=== PATIENT | male | born 1935 | race Caucasian/White ===

== ENCOUNTER 2017-04-19 19:40 | Inpatient (IN) | payer MEDICARE, OTHER, SELFPAY ==
[~2017-04-19 19:40] MED LIST: Atropine Sulfate 1 mg/10 ml Syringe ONE; Etomidate 20 MG/10 ML VIAL ONE
[2017-04-19] MEDS ORDERED: Acetaminophen 1,000 MG in Premix Bag 1 BAG IVPB SCH (20:15)
[2017-04-19 20:28] LABS: Bilirubin Small (Negative); Blood, Urine Trace (Negative); Clarity CLOUDY (Clear); Glucose, Urine (Dipstick) Negative (Negative); Leukocyte Negative (Negative); Nitrite Negative (Negative); Protein, Urine (Dipstick) 30 mg/dL (Neg-Trace); pH, Urine 6.5 (5.0-9.0)
[2017-04-19 20:30] LABS: Pathc Cast-AUWi Flag 2.16 (0-2.49); RBC/HPF 0-3 HPF (0-3); Squamous Epithelial 0-3 HPF (0-3); WBC/HPF 0-3 HPF (0-3)
[2017-04-19 20:39] LABS: Bacteria/HPF 1+ HPF (None Seen); Renal Epithelial None Seen HPF (0-3); Transitional Epithelial NONE SEEN HPF (0-3)
[2017-04-19 20:46] LABS: #Basophils 0.1 thou/uL (0.0-0.2); #Eosinphils 0.1 thou/uL (0.0-0.7); #Lymphocytes 2.2 thou/uL (1.20-3.40); #Monocytes 1.6 thou/uL (0.11-0.59); #Neutrophils 8.8 thou/uL (1.40-6.50); %Basophils 0.6 % (0.0-1.0); %Eosinophils 0.5 % (0.0-10.0); %Lymphocytes 17.2 % (21.0-51.0); %Monocytes 12.7 % (0.0-10.0); Hemoglobin 15.3 g/dL (14.0-18.0); Mean Corpuscular HGB CONC 35.2 g/dL (32.0-36.0); Mean Corpuscular Hemoglobin 34.4 pg (27.0-31.0); Mean Corpuscular Volume 97.7 fl (80.0-94.0); Mean Platelet Volume 7.4 fL (7.4-10.4); Platelet Count 144 thou/uL (130-400); RBC Distribution Width 11.4 % (11.5-14.5); Red Blood Cell (RBC) Count 4.45 mill/uL (4.70-6.10); White Blood Cell (WBC) Count 12.8 thou/uL (4.8-10.8)
[2017-04-19 20:53] LABS: INR-International Normal Ratio 1.2; PTT 30.8 SEC (22.9-36.1); Prothrombin Time 14.9 SEC (12.0-14.7)
--- NOTE | 2017-04-19 21:06 | CT ---
CT HEAD WITHOUT CONTRAST 04/19/17 COMPARISON: None. HISTORY: Altered mental status. TECHNIQUE: Serial axial CT imaging at 5 mm intervals from vertex through skull base without contrast. FINDINGS: There is mild mucosal thickening of the ethmoid air cells. There is atherosclerotic calcification of the cavernous carotid arteries. There is no displaced calvarial fracture. There is a linear area of hyperdensity in the left occipital region on axial image 5, of uncertain si gnificance without comparison imaging. A small area of extra-axial hemorrhage in this region cannot b e excluded. In addition, there is subtle increased linear density within the right occipital region o n axial image 13 which could signify small volume extra-axial blood. There is periventricular and deep white matter hypodensities suggesting small vessel disease. Prior l acunar infarction suspected in basal ganglia anteriorly on the left. No midline shift or mass effect. IMPRESSION: Questionable small volume extra-axial hemorrhage in the occipital regions, which could represent suba rachnoid or subdural blood. Followup imaging is thus advised. Results called to Dr. Roberson at 8:35 p.m., 04/19/17. Code CR POS: [facility]
[2017-04-19 21:08] LABS: ALT (SGPT) 21 U/L (8-55); AST (SGOT) 53 U/L (5-34); Albumin 3.4 g/dL (3.4-4.8); Alkaline Phosphatase 68 U/L (40-150); Anion Gap 26 mmol/L (10-20); BUN (Urea Nitrogen) 26 mg/dL (8.4-25.7); Bilirubin, Total 1.2 mg/dL (0.2-1.2); CK (CPK) 1411 U/L (30-200); Calc. Creatinine Clearance 0 mL/min (70-130); Calcium 8.1 mg/dL (7.8-10.44); Carbon Dioxide 10 mmol/L (23-31); Chloride 95 mmol/L (98-107); Estimated GFR-MDRD 20; Globulin 2.3 g/dL (2.4-3.5); Glucose 86 mg/dL (83-110); Potassium 3.7 mmol/L (3.5-5.1); Protein, Total 5.7 g/dL (5.8-8.1); Sodium 127 mmol/L (136-145)
[2017-04-19] MEDS ORDERED: Piperacillin/Tazobactam 4.5 GM in Sodium Chloride 0.9% 100 ML IVPB SCH (21:30)
[2017-04-19] MEDS ORDERED: Sodium Chloride 0.9% 1,000 ML IV SCH (23:00)
[2017-04-19] MEDS ORDERED: Dextrose 50% Abboject 50 ML SYRINGE SLOW IVP PRN (23:23)
[2017-04-19] MEDS ORDERED: Ondansetron HCl/PF 4 MG/2 ML Vial IVP PRN (23:23)
[2017-04-19] MEDS ORDERED: Dextrose 5% in Water 1,000 ML IV PRN (23:23)
[2017-04-20] MEDS: Sodium Chloride 0.9% 1,000 ML IV SCH ×6 (00:04→14:13)
--- NOTE | 2017-04-20 00:04 | HP ---
DATE OF ADMISSION: 04/19/2017 TIME OF SERVICE: 2130 hours. PRIMARY CARE PHYSICIAN: Unknown. CODE STATUS: Unknown. CHIEF COMPLAINT: Fall, found down. HISTORY OF PRESENT ILLNESS: Mr. Payne is an 83-year-old white male who was found down. His neighbors have been trying to reach him since yesterday. They had not heard from him, they went to his house and found him on the floor unresponsive. EMS was called. On their arrival, he was found to be very hot, confused and not speaking. He was last seen 2 days ago, was complaining of his eyes hurting, global weakness and vomiting. On EMS arrival, blood pressure reportedly low in the systolic 80s. He was given a liter of normal sa line en route, here his blood pressures have been in one teens and above. He did receive 3 more lite rs of normal saline in the emergency department. Blood pressure has been fairly normal now. Troponi n on initial labs was over 4. Temperature was 103.4 on arrival. The patient had been tachypneic and tachycardic. He is awake and looking around, but is very disoriented and confused. He is not able to give any further information. He did receive vancomycin and Zosyn prior to transfer. PAST MEDICAL HISTORY: Wheezing, hypertension, but otherwise unknown. PAST SURGICAL HISTORY: Unknown. HOME MEDICATIONS: Unknown. ALLERGIES: Unknown. FAMILY HISTORY: Not obtainable. SOCIAL HISTORY: Not obtainable. REVIEW OF SYSTEMS: Not obtainable due to mental status. PHYSICAL EXAMINATION: VITAL SIGNS: Temperature on arrival 103.4 down to 101.7 on a cooling blanket, pulse initially 149, n ow down to one teens. Blood pressure 124/86, respiratory rate 28, satting 96% on 2 liters. GENERAL: He is awake. He is looking around, but is disoriented. He is in no acute distress but loo ks uncomfortable. HEENT: Normocephalic and atraumatic. His pupils equal, round and reactive to light bilaterally. Mu cous membranes are moist. He has no visible lesions or thrush. NECK: Supple. He has no lymphadenopathy, no JVD, no thyromegaly. Normal carotid upstrokes. There are no bruits. CHEST: Lungs are clear. He has no wheezes, no rales or rhonchi. With good air movement, but shallo w, tachypneic respirations. ABDOMEN: Soft. He does groan when palpated. He has no involuntary guarding, no rigidity and no amrit ound tenderness. He has normoactive bowel sounds present in all 4 quadrants. EXTREMITIES: No cyanosis, no clubbing. He has got trace pedal edema. He has got 1+ and 2+ dorsalis pedis, posterior tibial pulses bilaterally. SKIN: Warm, moist, and well perfused otherwise. NEUROLOGIC: Not testable. MUSCULOSKELETAL: Normal to inspection. He has no inflamed joints. No palpable effusions. LABORATORY DATA: Sodium 127, potassium 3.7, chloride 95, bicarbonate 10, BUN 26 and creatinine of 2. 94, glucose of 86, and calcium of 8.1. Total protein was 5.7, albumin 3.4. AST slightly elevated at 53. Rest of liver function is complete ly within normal limits. CBC showed a white count of 12.8 with normal differential, hemoglobin is 15.3, hematocrit 43.4, plate let count is 144,000. Total CK was 1411, CK-MB of 31, troponin I of 4.45 and BNP is 133.6. Lactic acid was elevated at 3.[address] scan of the brain showed possible small volume subarachnoid hemorrhaging or subdural hematoma. Chest x-ray showed increased interstitial prominence but no opacities. ASSESSMENT AND PLAN: 1. Severe sepsis. I do not think the patient has septic shock. He responded to a single liter bolu s of fluids. His 30 mL per kilo would have been 2.4 liters. At this point, his blood pressure has n ormalized. He still remains tachypneic, tachycardic, likely secondary to his metabolic acidosis. Hi s heart rate has improved with fluids. His temperature has come down some. I will continue the Zosy n. He got a dose of vancomycin. With his creatinine of 2.94, he will likely hang around for another day or two. 2. Acute kidney injury versus chronic kidney disease. Creatinine is 2.94, BUN is only 26. We will give him fluids. We will check in the morning. 3. Rhabdomyolysis, mild. CK of 1411. 4. Non-ST elevation myocardial infarction. The patient does have lateral lead depression. Cardiolo gy was consulted. We will see him in the morning. In the meantime, we will trend his troponins out that was 4.45 in the emergency department. 5. Metabolic encephalopathy. 6. Lactic acidosis secondary to decreased tissue perfusion. 7. Possible subarachnoid hemorrhage versus subdural. Neurosurgery to be consulted. A repeat CT sca n has been ordered for the morning. It is very small volume and I do not think he needs any operativ e intervention at this point. Greater than 45 minutes were spent in critical care.
[2017-04-20 00:19] LABS: Lactic Acid 2.4 mmol/L (0.5-2.2)
[2017-04-20 00:34] LABS: CKMB 64.2 ng/mL (0-6.6); Troponin I 6.526 ng/mL (< 0.028)
[2017-04-20] MEDS ORDERED: Sodium Chloride 0.9% 1,000 ML IV SCH ×2 (01:00→17:30)
[2017-04-20] MEDS ORDERED: Piperacillin/Tazobactam 4.5 GM in Sodium Chloride 0.9% 100 ML IVPB SCH (04:00)
[2017-04-20 05:08] LABS: #Eosinphils 0.1 thou/uL (0.0-0.7); #Lymphocytes 1.6 thou/uL (1.20-3.40); #Monocytes 0.8 thou/uL (0.11-0.59); #Neutrophils 9.4 thou/uL (1.40-6.50); %Basophils 0.3 % (0.0-1.0); %Eosinophils 0.5 % (0.0-10.0); %Lymphocytes 13.1 % (21.0-51.0); %Monocytes 7.1 % (0.0-10.0); %Neutrophils 79.1 % (42.0-75.0); Hemoglobin 14.8 g/dL (14.0-18.0); Mean Corpuscular HGB CONC 34.7 g/dL (32.0-36.0); Mean Corpuscular Hemoglobin 34.1 pg (27.0-31.0); Mean Corpuscular Volume 98.3 fl (80.0-94.0); Mean Platelet Volume 7.5 fL (7.4-10.4); Platelet Count 153 thou/uL (130-400); RBC Distribution Width 11.3 % (11.5-14.5); Red Blood Cell (RBC) Count 4.34 mill/uL (4.70-6.10); White Blood Cell (WBC) Count 11.9 thou/uL (4.8-10.8)
[2017-04-20] MEDS ORDERED: Midazolam HCl 2 mg/2 ml Vial ONE (05:16)
[2017-04-20] MEDS ORDERED: Norepinephrine 8 MG/0.9% NS 250 ML ONE (05:22)
[2017-04-20 05:26] LABS: ALT (SGPT) 26 U/L (8-55); AST (SGOT) 96 U/L (5-34); Albumin 2.9 g/dL (3.4-4.8); Alkaline Phosphatase 58 U/L (40-150); Anion Gap 21 mmol/L (10-20); BUN (Urea Nitrogen) 26 mg/dL (8.4-25.7); Bilirubin, Total 1.1 mg/dL (0.2-1.2); CK (CPK) 2684 U/L (30-200); Calc. Creatinine Clearance 23 mL/min (70-130); Calcium 7.9 mg/dL (7.8-10.44); Carbon Dioxide 11 mmol/L (23-31); Chloride 100 mmol/L (98-107); Estimated GFR-MDRD 22; Globulin 2.4 g/dL (2.4-3.5); Glucose 101 mg/dL (83-110); Lipase 14 U/L (8-78); Magnesium 1.7 mg/dL (1.6-2.6); Potassium 3.8 mmol/L (3.5-5.1); Protein, Total 5.3 g/dL (5.8-8.1); Sodium 128 mmol/L (136-145)
[2017-04-20 05:32] LABS: Hemoglobin A1c 5.7 % (4.0-6.0)
[2017-04-20 05:57] LABS: Actual Bicarbonate (HCO3a) 12.5 mEq/L (22-26); CO2 Tension 34.7 mmHg (35.0-45.0); Hematocrit-ABG 42.3 % (42.0-52.0); Hemoglobin (Hb) 13.4 g/dL (14.0-18.0); O2 Tension (PaO2) 144.9 mmHg (80.0-100.0); pH, Arterial 7.17 (7.35-7.45)
[2017-04-20 05:58] LABS: ALV-art Gradient 519.725 (0-20); Calcium, Ionized 1.1 mmol/L (1.12-1.30); Puncture Site RRA
--- NOTE | 2017-04-20 06:25 | PDOC.EVN ---
Event Note - Event Note Event Note: code min called at around 0500. Pt hed just returned from CT brain, and abruptly dropped hs BP, then his HR dropped. Code min called. See Code sheet.. Pt intubated. see procedure note. 30 minutes were spent at the bedside
[2017-04-20] MEDS: Sodium Bicarbonate 150 MEQ in Sterile Water Injection 1,000 ML IV SCH ×2 (06:43→16:06)
--- NOTE | 2017-04-20 07:17 | RAD ---
SUPINE FRONTAL CHEST RADIOGRAPH 04/19/17 COMPARISON: None. HISTORY: Sepsis alert, altered mental status, fever. FINDINGS: There is atherosclerotic calcification in the aortic arch. Supine imaging limits assessment for pneum othorax and pleural fluid. No focal consolidation or alveolar edema. Patient is slightly rotated to t he right. IMPRESSION: No focal consolidation or alveolar edema. POS: [facility]
--- NOTE | 2017-04-20 07:21 | OP ---
DATE OF PROCEDURE: 04/20/2017 TIME OF SERVICE: 05:20. PROCEDURE PERFORMED: Endotracheal intubation, rapid sequence. INDICATION: Code blue. EMERGENCY STATUS: The patient is not protecting his airway. Informed consent was implied. Timeout was done. All equipment was verified. DESCRIPTION OF PROCEDURE: The patient was ordered to be given 20 mg of etomidate and 5 mg of Versed. He was bagged until these medicines were administered and effective. Once he was adequately relaxed, using a #4 Tobar blade, the oropharynx was opened and visualized. U sing a 7.5 endotracheal tube, the trachea was cannulated and the tube was inserted at 25 cm at the ps. This was done under direct visualization. Secondary confirmation with end-tidal capnography and bilateral chest sounds was obtained post-intuba tion. COMPLICATIONS: None, attempts 1. The patient was subsequently bagged until ventilator arrived and w as placed on ventilator settings. ESTIMATED BLOOD LOSS: 0.
[2017-04-20 07:41] LABS: CKMB 104.3 ng/mL (0-6.6); Troponin I 11.618 ng/mL (< 0.028)
--- NOTE | 2017-04-20 08:03 | CT ---
PRELIMINARY REPORT/[facility]/EMERGENCY AFTER HOURS PROCEDURE: EXAM: CT Head Without Intravenous Contrast EXAM DATE/TIME: 04/20/2017 5:04 AM CLINICAL HISTORY: 83 years old, male; Condition or disease; Other: Hemorrhage; Patient HX: F/u hemorrhage; Additional i nfo: Scan done helical due to pt constantly moving TECHNIQUE: Axial computed tomography images of the head/brain without intravenous contrast. COMPARISON: CT Brain WO Con 2017-04-19 20:17 FINDINGS: Brain: The ventricles are enlarged on the basis of mild diffuse cerebral volume loss. -hypodensity is seen in the periventricular cerebral white matter. This change is nonspecific but is most likely sec ondary to chronic ischemia within microvascular distributions. There are no other intra or extraaxial masses, lesions or collections. The mendoza white matter distinction is maintained throughout the brain . There is no radiographic evidence of intracranial hemorrhage. Small lacunar infarct left lentiform nuclei/centrum semiovale Summary: no radiographic evidence of acute intracranial pathology. Ventricles: See above. Bones/joints: Unremarkable. No acute fracture. Soft tissues: Unremarkable. Sinuses: Unremarkable as visualized. No acute sinusitis. Mastoid air cells: Unremarkable as visualized. No mastoid effusion. Other findings: . IMPRESSION: No acute findings. Thank you for allowing us to participate in the care of your patient. Dictated and Authenticated by: Javi Velez MD 04/20/2017 5:28 AM Central Time ([place] & [place]) FINAL REPORT NONCONTRAST HEAD CT: HISTORY: Followup examination. Intracranial hemorrhage. COMPARISON: 04/19/17. TECHNIQUE: A noncontrast head CT is performed from the skull base to the skull vertex. FINDINGS: This report is in agreement with the preliminary report by [facility]. Previously noted hyperdensities are less evident on the current examination and likely represent artifactual finding on the previous exam ination. No evidence of an intracranial hemorrhage. POS: [facility]
--- NOTE | 2017-04-20 08:07 | RAD ---
PORTABLE CHEST ONE VIEW: Date: 04-20-17 Time: 5:22 a.m. History: Respiratory failure. FINDINGS/IMPRESSION: Comparison is made with exam of 04-19-17. There has been interval placement of an endotracheal tube with tip at the level of the clavicular hea ds. The remainder of the exam is otherwise stable. POS: [facility]
[2017-04-20] MEDS ORDERED: Sedation Protocol FS ONE (08:26)
[2017-04-20] MEDS ORDERED: Propofol 1,000 MG/100 ML VIAL IV PRN (08:28)
[2017-04-20] MEDS ORDERED: Morphine 2 MG/ML SYRINGE SLOW IVP PRN (08:28)
[2017-04-20] MEDS ORDERED: fentaNYL Citrate/PF 2,000 MCG in Sodium Chloride 0.9% 60 ML IV SCH (08:28)
[2017-04-20] MEDS: Famotidine/PF 20 mg/2ml Vial SLOW IVP SCH (08:42)
[2017-04-20] MEDS ORDERED: Midazolam HCl 2 mg/2 ml Vial IVP SCH (08:45)
--- NOTE | 2017-04-20 09:07 | PRG ---
DATE OF CONSULTATION: 04/20/2017 A 45 minutes critical care time. CONSULTING PHYSICIAN: Dr. Fuller from the Hospitalist group. REASON FOR CONSULTATION: ICU management. HISTORY OF PRESENT ILLNESS: An 83-year-old male who was apparently found down by neighbors. He was brought to the hospital confused. He was hypotensive and was fluid resuscitated. His troponin was h igh and he also had a high CPK level. He gradually woke up. He was brought to the CCU. During the night, he became bradycardic and coded, had to be intubated and placed on mechanical ventilation, als o had to be placed on vasopressors. PAST MEDICAL HISTORY: Remarkable for hypertension. PAST SURGICAL HISTORY: Unknown. MEDICATIONS PRIOR TO ADMISSION: Unknown. ALLERGIES: Unknown. FAMILY MEDICAL HISTORY: Unremarkable. SOCIAL HISTORY: Not known. REVIEW OF SYSTEMS: Unobtainable due to the fact that he is intubated. PHYSICAL EXAMINATION: VITAL SIGNS: Temperature 98.4, pulse 136, blood pressure 100/52, O2 sat 98%, intake for 12 hours 700 , output 500, all voided through Toure. NEUROLOGICAL: The patient will withdrawal to pain. He will nod yes to questions. He will not open his eyes. HEENT: His eyes are deviated downward. Pupils are reactive. Oropharynx clear. NECK: No JVD. LUNGS: Clear to auscultation. CARDIOVASCULAR: S1, S2, tachycardic without murmur. ABDOMEN: Soft, protuberant. EXTREMITIES: No clubbing, cyanosis, or edema. LABORATORY DATA: Sodium 128, potassium 3.8, chloride 100, CO2 11, BUN 26, creatinine 2.7, glucose 10 1. Lactate level was 2.4. CPK 2684. Troponin 11.6, albumin 2.9. ABG, pH 7.17, pCO2 34, pO2 144 on SIMV rate 16, tidal volume 550, PEEP 5, pressure support 10, FIO2 100%. White blood cell count 11.9 , hematocrit 42.6, platelet count 153. X-RAY FINDINGS: His chest x-ray shows cardiomegaly, cephalization of flow, blunting of the left cost ophrenic angle, ET tube in good position. ASSESSMENT: 1. Status post cardiac arrest. 2. Acute respiratory failure requiring mechanical ventilation. 3. Possible sepsis. 4. Myocardial infarction with ST segment depression in the anterior leads. 5. Acute renal failure. 6. Metabolic acidosis. 7. Rhabdomyolysis. PLAN: 1. Bicarbonate drip has been started. 2. Wean Levophed as tolerated. 3. Adjust mechanical ventilation. 4. Empiric antibiotics. 5. Cardiology has been consulted. 6. Continue gastrointestinal prophylaxis with Pepcid. 7. Consider starting deep venous thrombosis prophylaxis if no contraindications and no heart cathete rization necessary.
[2017-04-20] MEDS: Piperacillin/Tazobactam 2.25 GM in Sodium Chloride 0.9% 100 ML IVPB SCH ×2 (09:20→17:10)
[2017-04-20 09:49] LABS: CKMB 120.1 ng/mL (0-6.6); Troponin I 14.205 ng/mL (< 0.028)
[2017-04-20 10:32] LABS: Actual Bicarbonate (HCO3a) 11.5 mEq/L (22-26); Base Excess (BEa) -11.6 mEq/L (0 (+/-) 2.5); CO2 Tension 20.6 mmHg (35.0-45.0); Hematocrit-ABG 41.9 % (42.0-52.0); Hemoglobin (Hb) 13.4 g/dL (14.0-18.0); pH, Arterial 7.36 (7.35-7.45)
[2017-04-20 10:33] LABS: Calcium, Ionized 1.1 mmol/L (1.12-1.30); Puncture Site LRA
[2017-04-20] MEDS: Norepinephrine 8 MG/250 ML BAG IVPB PRN ×2 (12:45→19:16)
[2017-04-20] MEDS ORDERED: Heparin 10,000 UNITS/ 10 ML VIAL SLOW IVP SCH (15:30)
--- NOTE | 2017-04-20 15:45 | EKG ---
Test Reason : Blood Pressure : / mmHG Vent. Rate : 140 BPM Atrial Rate : 140 BPM P-R Int : 000 ms QRS Dur : 090 ms QT Int : 372 ms P-R-T Axes : 000 073 088 degrees QTc Int : 567 ms Sinus tachycardia Possible Inferior infarct , age undetermined Abnormal ECG Confirmed by IRIS HATCH ([id number]) on 04/20/2017 3:44:59 PM Referred By: BENNY Confirmed By:IRIS HATCH
[2017-04-20] MEDS: Heparin 25,000 units/D5W 500 ML IV SCH (15:51)
[2017-04-20] MEDS ORDERED: Aspirin 325 MG TAB PO SCH (16:00)
--- NOTE | 2017-04-20 16:34 | PDOC.PN ---
- Subjective Encounter Start Date: 04/20/17 Encounter Start Time: 16:31 Subjective: pt remains intubated and sedated - Objective Resuscitation Status: Resuscitation Status FULL:Full Resuscitation MAR Reviewed: Yes Vital Signs & Weight: Vital Signs (12 hours) Temp Pulse Resp 04/20/17 15:05 133 H 04/20/17 13:18 134 H 04/20/17 12:00 99.6 F 04/20/17 10:35 136 H 04/20/17 10:00 31 H 04/20/17 08:00 28 H 04/20/17 07:35 98.4 F 04/20/17 07:20 135 H Weight Admit Weight 177 lb 11.081 oz Weight 177 lb 11.081 oz Most Recent Monitor Data Heart Rate from ECG 136 NIBP 98/46 NIBP BP-Mean 57 Respiration from ECG 32 SpO2 94 I&O: 04/19/17 04/20/17 04/21/17 06:59 06:59 06:59 Intake Total 700 30 Output Total 500 85 Balance 200 -55 Result Diagrams: 04/20/17 04:51 04/20/17 04:51 Additional Labs: Accuchecks 04/20/17 04/20/17 15:42 14:18 POC Glucose 82 77 Microbiology 04/19/17 19:54 Nasal swab Influenza Types A,B Direct EIA - Final 04/19/17 20:35 Venous blood - Left Arm Blood Culture - Preliminary Specimen has been received and culture in progress. No Growth to date. 04/19/17 20:30 Venous blood - Right Arm Blood Culture - Preliminary Specimen has been received and culture in progress. No Growth to date. Laboratory Tests 04/19/17 04/19/17 04/20/17 20:31 23:43 05:17 Troponin I 4.450 H* 6.526 H* 11.618 H* 04/20/17 08:37 Troponin I 14.205 H* Phys Exam - Physical Examination Constitutional: NAD ETT HEENT: PERRLA, moist MMs, sclera anicteric Neck: no JVD Respiratory: no wheezing, no rales, no rhonchi, clear to auscultation bilateral Cardiovascular: RRR, no significant murmur Gastrointestinal: soft, no distention, positive bowel sounds Musculoskeletal: no edema, pulses present sedated sedated Skin: no rash Dx/Plan (1) Acute respiratory failure Code(s): J96.00 - ACUTE RESPIRATORY FAILURE, UNSP W HYPOXIA OR HYPERCAPNIA Status: Acute Qualifiers: Respiratory failure complication: hypoxia Qualified Code(s): J96.01 - Acute respiratory failure with hypoxia (2) Cardiac arrest Code(s): I46.9 - CARDIAC ARREST, CAUSE UNSPECIFIED Status: Acute Comment: Coded 04/19/17 (3) ACS (acute coronary syndrome) Code(s): I24.9 - ACUTE ISCHEMIC HEART DISEASE, UNSPECIFIED Status: Acute (4) Rhabdomyolysis Code(s): M62.82 - RHABDOMYOLYSIS Status: Acute (5) Metabolic encephalopathy Code(s): G93.41 - METABOLIC ENCEPHALOPATHY Status: Acute (6) MICH (acute kidney injury) Code(s): N17.9 - ACUTE KIDNEY FAILURE, UNSPECIFIED Status: Acute (7) Metabolic acidosis Code(s): E87.2 - ACIDOSIS Status: Acute (8) Shock Code(s): R57.9 - SHOCK, UNSPECIFIED Status: Acute Comment: Cardiogenic Vs Septic Vs both (9) Sepsis Code(s): A41.9 - SEPSIS, UNSPECIFIED ORGANISM Status: Suspected - Plan cont current plan of care, DVT proph w/SCDs empiric ABx.Nicardipine drip.Cardiology,PCCM following -: Vent support. -: D/W Cardiology.start ASA,Heparin gtt per protocol. -: monitor CPK.IVF.supportive care for now.daily labs -: ECHo w NL EF per Dr. Richter.will follow * . Review of Systems - Review of Systems Other: unobtainable due to sedation & ETT - Medications/Allergies Allergies/Adverse Reactions: Allergies Allergy/AdvReac Type Severity Reaction Status Date / Time No Known Drug Allergies Allergy Unverified 04/19/17 20:09 Medications: Current Medications Aspirin (Aspirin) 325 mg PO 1600 DON Stop: 04/20/17 18:00 Aspirin (Aspirin) 325 mg PO DAILY [facility] Dextrose/Water (Dextrose 50%) 25 gm SLOW IVP PRN PRN PRN Reason: Hypoglycemia Famotidine (Pepcid) 20 mg SLOW IVP 0900 DON Last Admin: 04/20/17 08:42 Dose: 20 mg Glucagon (Glucagon) 1 mg IM PRN PRN PRN Reason: Hypoglycemia Heparin Sodium (Porcine) (Heparin 1,000 Units/Ml (10 Ml)) 4,000 units SLOW IVP WILLCALL [facility] Last Admin: 04/20/17 15:50 Dose: 4,000 unit Dextrose/Water (D5w) 1,000 mls @ 0 mls/hr IV .Q0M PRN; As Directed PRN Reason: Hypoglycemia Sodium Bicarbonate 150 meq/ (Sterile Water) 1,150 mls @ 125 mls/hr IV .Q9H12M [facility] Last Admin: 04/20/17 16:06 Dose: 1,150 mls Fentanyl Citrate 2,000 mcg/ (Sodium Chloride) 100 mls @ 0 mls/hr IV INF DON; Per Protocol PRN Reason: Protocol Stop: 05/20/17 08:28 Fentanyl Citrate (Fentanyl Bolus) 250 mls @ 0 mls/hr IVPB PRN PRN; As Directed PRN Reason: Breakthrough pain Stop: 05/20/17 08:28 Piperacillin Sod/Tazobactam (Sod 2.25 gm/ Sodium Chloride) 100 mls @ 200 mls/ hr IVPB 0100,0900,1700 [facility] Last Admin: 04/20/17 09:20 Dose: 100 mls Norepinephrine Bitartrate (Levophed) 250 mls @ 0 mls/hr IVPB INF PRN; Protocol ; Titrate PRN Reason: Blood Pressure Last Admin: 04/20/17 12:45 Dose: 250 mls Heparin Sodium/Dextrose (Heparin 25,000 Units/D5w 500 Ml) 500 mls @ 0 mls/hr IV INF DON; As Directed PRN Reason: Protocol Last Admin: 04/20/17 15:51 Dose: 500 mls Insulin Human Lispro (Humalog) 0 units SC .MILD SLIDING SCALE PRN PRN Reason: Mild Correctional Scale Lorazepam (Ativan) 2 mg SLOW IVP Q2H PRN PRN Reason: Anxiety to achieve Mera 2-3 Stop: 05/20/17 08:28 Morphine Sulfate (Morphine) 2 mg SLOW IVP Q2H PRN PRN Reason: Breakthrough pain Stop: 05/20/17 08:28 Ondansetron HCl (Zofran) 4 mg IVP Q6H PRN PRN Reason: Nausea/Vomiting Propofol (Diprivan) 1,000 mg IV INF PRN; Protocol PRN Reason: TO ACHIEVE MERA SCORE 2-3 Stop: 05/20/17 08:28 Sodium Chloride (Flush - Normal Saline) 10 ml IVF Q12HR DON Last Admin: 04/20/17 08:42 Dose: 10 ml Sodium Chloride (Flush - Normal Saline) 10 ml IVF PRN PRN PRN Reason: Saline Flush
[2017-04-20 16:37] LABS: CKMB 104.2 ng/mL (0-6.6)
[2017-04-20] MEDS ORDERED: Phenylephrine 10 MG/NS 250 ML 250 ML IVPB SCH (17:30)
[2017-04-20] MEDS ORDERED: Acetaminophen 1,000 MG in Premix Bag 1 BAG IVPB PRN (19:45)
--- NOTE | 2017-04-20 20:25 | CON ---
Total critical care time 80 minutes. HISTORY OF PRESENT ILLNESS: Mr. Payne is an unfortunate 83-year-old gentleman where most of the histo ry is obtained from the chart. Apparently Mr. Payne presented to the emergency room after being found down. He was unresponsive while at home. EMS was summoned. He was confused with a temperature 103 .4. He was then transferred to the emergency room. He was found to have ST segment depression, cons istent with subendocardial ischemia versus acute posterior infarct. The patient also with elevated c reatinine of 2.9 in addition to subarachnoid bleed. His CK-MB and CK were both elevated as well as a troponin of 4. It was decided to treat conservatively due to a likely subarachnoid bleed. I did discuss this with Dr. Jeffery Roberson. This morning, CT scan of the head was repeated to assess the intracranial bleed. This was not found to be significant and not found to be a bleed and more consistent with an artifact on the first CT sc an. He subsequently coded shortly thereafter. He is now intubated and sedated. PAST MEDICAL HISTORY: Unknown other than hypertension. Medications, allergies, family history, and social history all unknown. He is currently intubated. PHYSICAL EXAMINATION: VITAL SIGNS: Blood pressure 90/38, pulse 130, and respirations 20. GENERAL: Patient is a pleasant male, who is in no acute distress. The patient appears his stated ag e. The patient is currently intubated and sedated. NEUROLOGIC: The patient is alert and oriented times 3 with no focal neurologic deficits. HEENT: Sclerae without icterus. Mouth has moist mucous membranes with normal pallor. NECK: No JVD. Carotid upstroke brisk. No bruits bilaterally. LUNGS: Clear to auscultation with unlabored respirations. BACK: No scoliosis or kyphosis. CARDIAC: Regular rate and rhythm with normal S1 and S2. No S3 or S4 noted. No significant rubs, murmurs, thrills, or gallops noted throughout the precordium. PMI is not displa zully. There is no parasternal heave. ABDOMEN: Soft, nontender, nondistended. No peritoneal signs present. No hepatosplenomegaly. No abnormal striae. EXTREMITIES: 2+ femoral and 2+ dorsalis pedis pulses. No cyanosis, clubbing, or edema. SKIN: No gross abnormalities. PERTINENT LABORATORY DATA: Hemoglobin 14.8. CK-MB trending downward with a CK-MB of 104, 120, 104 and a Troponin of 11, 14, and 19. Creatinine kinase also elevated at 1400, 2684, 2957. EKG as described above. Follow up EKG shows normal sinus rhythm with much improvement in ST segment changes. IMPRESSION: 1. Respiratory failure. 2. Unresponsive. 3. Hypotensive likely septic shock. 4. Elevated troponin. 5. Acute kidney injury. RECOMMENDATIONS: Certainly this is a very difficult case. I have seen Mr. Payne in multiple occasion s and also daughter today. He initially was decided not to proceed with urgent angiography due to el evated creatinine in addition to a subarachnoid bleed. After confirmation via the CT scan, there was no subarachnoid hemorrhage with improvement of his EKG in addition to a CK MB to CK ratio of 2 and a creatinine of 2.7. It was decided to treat medically. Heparin and aspirin were given. Bedside echo did suggest LVEF 60% to 65%, although it was of poor quality. Initial insult difficult to assess. It is unknown whether this is truly a primary cardiac event, which is doubtful given his CK-MB to CK ratio versus septic shock. We will continue to follow closely with you.
[2017-04-20] MEDS: Vasopressin 40 UNIT, Admixture Fee 1 EACH in Sodium Chloride 0.9% 100 ML IV SCH (20:55)
[2017-04-20] MEDS: Hydrocortisone Sod Succ/PF 100 mg/2 ml Vial IVP SCH (23:00)
[2017-04-21 00:06] LABS: PTT Greater than 250.0 SEC (22.9-36.1)
[2017-04-21] MEDS: Sodium Bicarbonate 150 MEQ in Sterile Water Injection 1,000 ML IV SCH ×3 (01:38→20:37)
[2017-04-21] MEDS: Piperacillin/Tazobactam 2.25 GM in Sodium Chloride 0.9% 100 ML IVPB SCH ×3 (01:40→18:01)
[2017-04-21] MEDS: Phenylephrine HCL 20 MG in Sodium Chloride 0.9% 250 ML 250 ML IV SCH ×5 (04:07→18:31)
[2017-04-21 05:29] LABS: ALT (SGPT) 35 U/L (8-55); AST (SGOT) 160 U/L (5-34); Albumin 2.2 g/dL (3.4-4.8); Alkaline Phosphatase 53 U/L (40-150); Anion Gap 22 mmol/L (10-20); BUN (Urea Nitrogen) 28 mg/dL (8.4-25.7); Calc. Creatinine Clearance 17 mL/min (70-130); Calcium 6.8 mg/dL (7.8-10.44); Carbon Dioxide 13 mmol/L (23-31); Chloride 99 mmol/L (98-107); Estimated GFR-MDRD 16; Glucose 114 mg/dL (83-110); Lipase 14 U/L (8-78); Potassium 5.1 mmol/L (3.5-5.1); Protein, Total 4.2 g/dL (5.8-8.1); Sodium 129 mmol/L (136-145)
[2017-04-21 05:54] LABS: Band 18 % (5-11); Hemoglobin 12.2 g/dL (14.0-18.0); Lymphocytes 6 % (21-51); MDiff Complete? YES; Macrocytosis SLIGHT = 6-15 cells (100X) (0-5/hpf); Mean Corpuscular HGB CONC 34.9 g/dL (32.0-36.0); Mean Corpuscular Hemoglobin 33.7 pg (27.0-31.0); Mean Corpuscular Volume 96.7 fl (80.0-94.0); Mean Platelet Volume 8.1 fL (7.4-10.4); Metamyelocyte 8 % (0-0); Monocytes 6 % (0-10); Neutrophil 61 % (42-75); PLT Morphology Comment Appears Decreased; Platelet Count 128 thou/uL (130-400); RBC Distribution Width 11.6 % (11.5-14.5); Reactive Lymphocytes 1 % (0-10); Red Blood Cell (RBC) Count 3.63 mill/uL (4.70-6.10); White Blood Cell (WBC) Count 15.9 thou/uL (4.8-10.8)
[2017-04-21] MEDS: Hydrocortisone Sod Succ/PF 100 mg/2 ml Vial IVP SCH ×3 (06:36→18:01)
[2017-04-21 07:59] LABS: CO2 Tension 20.7 mmHg (35.0-45.0); Hematocrit-ABG 37.9 % (42.0-52.0); Hemoglobin (Hb) 12.2 g/dL (14.0-18.0); O2 Tension (PaO2) 80.4 mmHg (80.0-100.0); pH, Arterial 7.38 (7.35-7.45)
[2017-04-21 08:00] LABS: ALV-art Gradient 178.925 (0-20); Calcium, Ionized 0.9 mmol/L (1.12-1.30); Puncture Site RRA
--- NOTE | 2017-04-21 08:07 | PDOC.PULCC ---
CCU Progress Note: Subj/Obj - Subjective Date: 04/21/17 Time: 08:05 Narrative: intubated. sedated on fentanyl. Poorly responsive - Objective Allergies/Adverse Reactions: Allergies Allergy/AdvReac Type Severity Reaction Status Date / Time No Known Drug Allergies Allergy Unverified 04/19/17 20:09 Medications: Current Medications Aspirin (Aspirin) 325 mg PO DAILY [facility] Dextrose/Water (Dextrose 50%) 25 gm SLOW IVP PRN PRN PRN Reason: Hypoglycemia Famotidine (Pepcid) 20 mg SLOW IVP 0900 [facility] Last Admin: 04/20/17 08:42 Dose: 20 mg Glucagon (Glucagon) 1 mg IM PRN PRN PRN Reason: Hypoglycemia Heparin Sodium (Porcine) (Heparin 1,000 Units/Ml (10 Ml)) 4,000 units SLOW IVP [facility] Last Admin: 04/20/17 15:50 Dose: 4,000 unit Hydrocortisone Sodium Succinate (Solu-Cortef) 100 mg IVP Q6HR [facility] Last Admin: 04/21/17 06:36 Dose: 100 mg Dextrose/Water (D5w) 1,000 mls @ 0 mls/hr IV .Q0M PRN; As Directed PRN Reason: Hypoglycemia Sodium Bicarbonate 150 meq/ (Sterile Water) 1,150 mls @ 125 mls/hr IV .Q9H12M [facility] Last Admin: 04/21/17 01:38 Dose: 1,150 mls Fentanyl Citrate 2,000 mcg/ (Sodium Chloride) 100 mls @ 0 mls/hr IV INF [facility]; Per Protocol PRN Reason: Protocol Stop: 05/20/17 08:28 Last Admin: 04/21/17 00:37 Dose: 100 mls Fentanyl Citrate (Fentanyl Bolus) 250 mls @ 0 mls/hr IVPB PRN PRN; As Directed PRN Reason: Breakthrough pain Stop: 05/20/17 08:28 Piperacillin Sod/Tazobactam (Sod 2.25 gm/ Sodium Chloride) 100 mls @ 200 mls/ hr IVPB 0100,0900,1700 [facility] Last Admin: 04/21/17 01:40 Dose: 100 mls Norepinephrine Bitartrate (Levophed) 250 mls @ 0 mls/hr IVPB INF PRN; Protocol ; Titrate PRN Reason: Blood Pressure Last Admin: 04/20/17 19:16 Dose: 250 mls Heparin Sodium/Dextrose (Heparin 25,000 Units/D5w 500 Ml) 500 mls @ 0 mls/hr IV INF [facility]; As Directed PRN Reason: Protocol Last Admin: 04/20/17 15:51 Dose: 500 mls Acetaminophen 1,000 mg/ Device 100 mls @ 400 mls/hr IVPB Q6H PRN PRN Reason: Fever/Mild Pain Stop: 04/21/17 19:46 Vasopressin 40 unit/Miscellaneous Medication 1 each/ Sodium Chloride 102 mls @ 0 mls/hr IV INF [facility]; As Directed PRN Reason: Protocol Last Admin: 04/20/17 20:55 Dose: 102 mls Phenylephrine HCl 20 mg/ (Sodium Chloride) 252 mls @ 0 mls/hr IV INF [facility]; Titrate PRN Reason: Protocol Last Admin: 04/21/17 07:22 Dose: 252 mls Insulin Human Lispro (Humalog) 0 units SC .MILD SLIDING SCALE PRN PRN Reason: Mild Correctional Scale Lorazepam (Ativan) 2 mg SLOW IVP Q2H PRN PRN Reason: Anxiety to achieve Mera 2-3 Stop: 05/20/17 08:28 Morphine Sulfate (Morphine) 2 mg SLOW IVP Q2H PRN PRN Reason: Breakthrough pain Stop: 05/20/17 08:28 Ondansetron HCl (Zofran) 4 mg IVP Q6H PRN PRN Reason: Nausea/Vomiting Propofol (Diprivan) 1,000 mg IV INF PRN; Protocol PRN Reason: TO ACHIEVE MERA SCORE 2-3 Stop: 05/20/17 08:28 Sodium Chloride (Flush - Normal Saline) 10 ml IVF Q12HR [facility] Last Admin: 04/20/17 22:56 Dose: 10 ml Sodium Chloride (Flush - Normal Saline) 10 ml IVF PRN PRN PRN Reason: Saline Flush MAR Reviewed: Yes Vital Signs and I&O: Vital Signs Temp 98.4 F 04/21/17 04:00 Pulse 128 H 04/20/17 20:00 Resp 24 H 04/21/17 06:00 BP 94/45 L 04/20/17 04:30 Pulse Ox 98 04/20/17 20:00 Intake & Output 02/21/18 02/22/18 02/22/18 18:59 06:59 18:59 Intake Total 4025 3956.1 Output Total 740 565 Balance 3285 3391.1 Weight 177 lb 11.081 oz Intake: Intake, IV Amount 3995 3956.1 Heparin 25,000 units/D5W 39 148 500 ml @ As Directed IV INF [facility] Rx#:[id number] Norepinephrine 8 MG/0.9% 486 276 NS 250 ml @ Titrate IVPB INF PRN Rx#:[id number] Phenylephrine HCL 10 mg 568 In Sodium Chloride 0.9% 250 ML 250 ml @ Titrate IV INF [facility] Rx#:[id number] Phenylephrine HCL 20 mg 192 In Sodium Chloride 0.9% 250 ML 250 ml @ Titrate IV INF [facility] Rx#:[id number] Piperacillin/Tazobactam 2 100 .25 gm In Sodium Chloride 0.9% 100 ml @ 200 mls/hr IVPB 0100,0900,1700 [facility] Rx#:[id number] Propofol 1000 mg (See 44 48.8 Protocol) IV INF PRN Rx#: [id number] Sodium Bicarbonate 150 1426 1567 meq In Sterile Water Injection 1,000 ml @ 125 mls/hr IV .Q9H12M [facility] Rx# :[id number] Sodium Chloride 0.9% 1, 1000 000 ml @ 125 mls/hr IV . Q8H [facility] Rx#:[id number] Sodium Chloride 0.9% 1, 1000 000 ml @ 250 mls/hr IV . Q4H [facility] Rx#:[id number] Sodium Chloride 0.9% 1, 1000 000 ml @ 500 mls/hr IV . Q2H [facility] Rx#:[id number] Vasopressin 40 unit 56.3 Admixture Fee 1 each In Sodium Chloride 0.9% 100 ml @ As Directed IV INF [facility] Rx#:[id number] Oral 0 Tube Irrigant 30 Output: Gastric Drainage 600 500 Output, Toure 140 65 Other: Voiding Method Indwelling Catheter Indwelling Catheter # Bowel Movements 0 0 Vent Setting: SIMV 24/500/40% Spontaneous Breathing Test: not done Lines (incl Aterial, CVC, PICC+Insertion date): Left femoral central line CCU Progress Note: Exam - Physical Exam Constitutional: NAD Deviation from normal: conj edema, icteric Neck: no nodes, no JVD Cardiovascular: RRR Deviation from normal: requiring paramjit and vasopressin Respiratory: clear to auscultation bilaterally Gastrointestinal: soft, no distention Deviation from normal: cannot get him to withdraw Lymphatic: no nodes Deviation from normal: sedated Skin: no rash CCU Progress Note: Data - Labs Result Diagrams: 04/21/17 04:45 04/21/17 04:45 Lab results: Laboratory Results 04/19/17 04/19/17 04/20/17 23:43 23:43 04:51 WBC RBC Hgb Hct MCV MCH MCHC RDW Plt Count MPV Neutrophils % Neutrophils % (Manual) Band Neuts % (Manual) Lymphocytes % Lymphocytes % (Manual) Reactive Lymphs % Monocytes % Monocytes % (Manual) Eosinophils % Basophils % Metamyelocytes % (Man) Neutrophils # Lymphocytes # Monocytes # Eosinophils # Basophils # Plt Morphology Comment Macrocytosis APTT Specimen Type Puncture Site Bicarbonate Actual ABG pH ABG pCO2 ABG pO2 ABG O2 Sat Calc/Cheli ABG O2 Content ABG Base Excess ABG Hematocrit ABG Hemoglobin ABG Oxyhemoglobin ABG Carboxyhemoglobin ABG Methemoglobin ABG Deoxyhemoglobin Edy Test A-a O2 Gradient Ionized Calcium Mode of Support Mechanical Rate Inspired O2 Inspiratory Time Tidal Volume Pressure Support PEEP or CPAP Sodium 128 L Potassium 3.8 Chloride 100 Carbon Dioxide 11 L Anion Gap 21 H BUN 26 H Creatinine 2.71 H Estimated GFR (MDRD) 22 Glucose 101 POC Glucose Hemoglobin A1c Lactic Acid 2.4 H Calcium 7.9 Magnesium 1.7 Total Bilirubin 1.1 AST 96 H ALT 26 Alkaline Phosphatase 58 Creatine Kinase 2684 H CK-MB (CK-2) 64.2 H* Troponin I 6.526 H* Serum Total Protein 5.3 L Albumin 2.9 L Globulin 2.4 Albumin/Globulin Ratio 1.2 Lipase 14 04/20/17 04/20/17 04/20/17 04:51 04:51 05:17 WBC 11.9 H RBC 4.34 L Hgb 14.8 Hct 42.6 MCV 98.3 H MCH 34.1 H MCHC 34.7 RDW 11.3 L Plt Count 153 MPV 7.5 Neutrophils % 79.1 H Neutrophils % (Manual) Band Neuts % (Manual) Lymphocytes % 13.1 L Lymphocytes % (Manual) Reactive Lymphs % Monocytes % 7.1 Monocytes % (Manual) Eosinophils % 0.5 Basophils % 0.3 Metamyelocytes % (Man) Neutrophils # 9.4 H Lymphocytes # 1.6 Monocytes # 0.8 H Eosinophils # 0.1 Basophils # 0.0 Plt Morphology Comment Macrocytosis APTT Specimen Type Puncture Site Bicarbonate Actual ABG pH ABG pCO2 ABG pO2 ABG O2 Sat Calc/Cheli ABG O2 Content ABG Base Excess ABG Hematocrit ABG Hemoglobin ABG Oxyhemoglobin ABG Carboxyhemoglobin ABG Methemoglobin ABG Deoxyhemoglobin Edy Test A-a O2 Gradient Ionized Calcium Mode of Support Mechanical Rate Inspired O2 Inspiratory Time Tidal Volume Pressure Support PEEP or CPAP Sodium Potassium Chloride Carbon Dioxide Anion Gap BUN Creatinine Estimated GFR (MDRD) Glucose POC Glucose Hemoglobin A1c 5.7 Lactic Acid Calcium Magnesium Total Bilirubin AST ALT Alkaline Phosphatase Creatine Kinase CK-MB (CK-2) 104.3 H* Troponin I 11.618 H* Serum Total Protein Albumin Globulin Albumin/Globulin Ratio Lipase 04/20/17 04/20/17 04/20/17 05:36 08:37 08:37 WBC RBC Hgb Hct MCV MCH MCHC RDW Plt Count MPV Neutrophils % Neutrophils % (Manual) Band Neuts % (Manual) Lymphocytes % Lymphocytes % (Manual) Reactive Lymphs % Monocytes % Monocytes % (Manual) Eosinophils % Basophils % Metamyelocytes % (Man) Neutrophils # Lymphocytes # Monocytes # Eosinophils # Basophils # Plt Morphology Comment Macrocytosis APTT Specimen Type ARTERIAL Puncture Site RRA Bicarbonate Actual 12.5 L ABG pH 7.17 L* ABG pCO2 34.7 L ABG pO2 144.9 H ABG O2 Sat Calc/Cheli 98.6 ABG O2 Content 18.4 ABG Base Excess -15.0 L ABG Hematocrit 42.3 ABG Hemoglobin 13.4 L ABG Oxyhemoglobin 96.9 ABG Carboxyhemoglobin 1.1 ABG Methemoglobin 0.6 ABG Deoxyhemoglobin 1.4 Edy Test POSITIVE A-a O2 Gradient 519.725 H Ionized Calcium 1.1 L Mode of Support SIMV Mechanical Rate 16 Inspired O2 100 Inspiratory Time Tidal Volume 550 Pressure Support 10 PEEP or CPAP 5.0 Sodium 128 L Potassium 3.6 L Chloride 98 Carbon Dioxide Anion Gap BUN Creatinine Estimated GFR (MDRD) Glucose POC Glucose Hemoglobin A1c Lactic Acid Calcium Magnesium Total Bilirubin AST ALT Alkaline Phosphatase Creatine Kinase 2957 H CK-MB (CK-2) 120.1 H* Troponin I 14.205 H* Serum Total Protein Albumin Globulin Albumin/Globulin Ratio Lipase 04/20/17 04/20/17 04/20/17 10:20 14:18 15:37 WBC RBC Hgb Hct MCV MCH MCHC RDW Plt Count MPV Neutrophils % Neutrophils % (Manual) Band Neuts % (Manual) Lymphocytes % Lymphocytes % (Manual) Reactive Lymphs % Monocytes % Monocytes % (Manual) Eosinophils % Basophils % Metamyelocytes % (Man) Neutrophils # Lymphocytes # Monocytes # Eosinophils # Basophils # Plt Morphology Comment Macrocytosis APTT Specimen Type ARTERIAL Puncture Site LRA Bicarbonate Actual 11.5 L ABG pH 7.36 ABG pCO2 20.6 L* ABG pO2 67.0 L ABG O2 Sat Calc/Cheli 95.0 ABG O2 Content 17.6 ABG Base Excess -11.6 L ABG Hematocrit 41.9 L ABG Hemoglobin 13.4 L ABG Oxyhemoglobin 0.9 L ABG Carboxyhemoglobin 0.9 ABG Methemoglobin 0.6 ABG Deoxyhemoglobin Edy Test A-a O2 Gradient 192.450 H Ionized Calcium 1.1 L Mode of Support SIMV/VC+ Mechanical Rate 24 Inspired O2 40 Inspiratory Time 1.00 Tidal Volume 450 Pressure Support 10 PEEP or CPAP 5.0 Sodium 129 L Potassium 3.4 L Chloride 97 L Carbon Dioxide Anion Gap BUN Creatinine Estimated GFR (MDRD) Glucose POC Glucose 77 Hemoglobin A1c Lactic Acid Calcium Magnesium Total Bilirubin AST ALT Alkaline Phosphatase Creatine Kinase CK-MB (CK-2) 104.2 H* Troponin I 19.640 H* Serum Total Protein Albumin Globulin Albumin/Globulin Ratio Lipase 04/20/17 04/20/17 04/20/17 15:42 22:36 23:30 WBC RBC Hgb Hct MCV MCH MCHC RDW Plt Count MPV Neutrophils % Neutrophils % (Manual) Band Neuts % (Manual) Lymphocytes % Lymphocytes % (Manual) Reactive Lymphs % Monocytes % Monocytes % (Manual) Eosinophils % Basophils % Metamyelocytes % (Man) Neutrophils # Lymphocytes # Monocytes # Eosinophils # Basophils # Plt Morphology Comment Macrocytosis APTT Greater than 250.0 H* Specimen Type Puncture Site Bicarbonate Actual ABG pH ABG pCO2 ABG pO2 ABG O2 Sat Calc/Cheli ABG O2 Content ABG Base Excess ABG Hematocrit ABG Hemoglobin ABG Oxyhemoglobin ABG Carboxyhemoglobin ABG Methemoglobin ABG Deoxyhemoglobin Edy Test A-a O2 Gradient Ionized Calcium Mode of Support Mechanical Rate Inspired O2 Inspiratory Time Tidal Volume Pressure Support PEEP or CPAP Sodium Potassium Chloride Carbon Dioxide Anion Gap BUN Creatinine Estimated GFR (MDRD) Glucose POC Glucose 82 91 Hemoglobin A1c Lactic Acid Calcium Magnesium Total Bilirubin AST ALT Alkaline Phosphatase Creatine Kinase CK-MB (CK-2) Troponin I Serum Total Protein Albumin Globulin Albumin/Globulin Ratio Lipase 04/21/17 04/21/17 04/21/17 02:35 04:45 04:45 WBC 15.9 H RBC 3.63 L Hgb 12.2 L Hct 35.0 L MCV 96.7 H MCH 33.7 H MCHC 34.9 RDW 11.6 Plt Count 128 L MPV 8.1 Neutrophils % Neutrophils % (Manual) 61 Band Neuts % (Manual) 18 H Lymphocytes % Lymphocytes % (Manual) 6 L Reactive Lymphs % 1 Monocytes % Monocytes % (Manual) 6 Eosinophils % Basophils % Metamyelocytes % (Man) 8 H Neutrophils # Lymphocytes # Monocytes # Eosinophils # Basophils # Plt Morphology Comment Appears Decreased L Macrocytosis SLIGHT = 6-15 cells APTT 91.8 H Specimen Type Puncture Site Bicarbonate Actual ABG pH ABG pCO2 ABG pO2 ABG O2 Sat Calc/Cheli ABG O2 Content ABG Base Excess ABG Hematocrit ABG Hemoglobin ABG Oxyhemoglobin ABG Carboxyhemoglobin ABG Methemoglobin ABG Deoxyhemoglobin Edy Test A-a O2 Gradient Ionized Calcium Mode of Support Mechanical Rate Inspired O2 Inspiratory Time Tidal Volume Pressure Support PEEP or CPAP Sodium 129 L Potassium 5.1 Chloride 99 Carbon Dioxide 13 L Anion Gap 22 H BUN 28 H Creatinine 3.65 H Estimated GFR (MDRD) 16 Glucose 114 H POC Glucose Hemoglobin A1c Lactic Acid Calcium 6.8 L Magnesium Total Bilirubin 1.0 AST 160 H ALT 35 Alkaline Phosphatase 53 Creatine Kinase CK-MB (CK-2) Troponin I Serum Total Protein 4.2 L Albumin 2.2 L Globulin 2.0 L Albumin/Globulin Ratio 1.1 L Lipase 14 04/21/17 04/21/17 05:12 07:50 WBC RBC Hgb Hct MCV MCH MCHC RDW Plt Count MPV Neutrophils % Neutrophils % (Manual) Band Neuts % (Manual) Lymphocytes % Lymphocytes % (Manual) Reactive Lymphs % Monocytes % Monocytes % (Manual) Eosinophils % Basophils % Metamyelocytes % (Man) Neutrophils # Lymphocytes # Monocytes # Eosinophils # Basophils # Plt Morphology Comment Macrocytosis APTT Specimen Type ARTERIAL Puncture Site RRA Bicarbonate Actual 12.0 L ABG pH 7.38 ABG pCO2 20.7 L* ABG pO2 80.4 ABG O2 Sat Calc/Cheli 96.3 ABG O2 Content 16.3 L ABG Base Excess -11.0 L ABG Hematocrit 37.9 L ABG Hemoglobin 12.2 L ABG Oxyhemoglobin 95.0 ABG Carboxyhemoglobin 0.8 ABG Methemoglobin 0.5 ABG Deoxyhemoglobin Edy Test A-a O2 Gradient 178.925 H Ionized Calcium 0.9 L Mode of Support SIMV/VC+ Mechanical Rate 24 Inspired O2 40 Inspiratory Time 1.00 Tidal Volume 400 Pressure Support 10 PEEP or CPAP 5.0 Sodium 127 L Potassium 5.2 Chloride 97 L Carbon Dioxide Anion Gap BUN Creatinine Estimated GFR (MDRD) Glucose POC Glucose 130 H Hemoglobin A1c Lactic Acid Calcium Magnesium Total Bilirubin AST ALT Alkaline Phosphatase Creatine Kinase CK-MB (CK-2) Troponin I Serum Total Protein Albumin Globulin Albumin/Globulin Ratio Lipase - ABG Interpretation Attestation: I reviewed and interpreted this ABG. ABG Results: ABG pH 7.38 (7.35-7.45) 04/21/17 07:50 ABG pCO2 20.7 mmHg (35.0-45.0) L* 04/21/17 07:50 ABG O2 Sat Calc/Cheli 96.3 % (94.0-100.0) 04/21/17 07:50 ABG Base Excess -11.0 mEq/L (0 (+/-) 2.5) L 04/21/17 07:50 Interpretation: metabolic acidosis - Radiology Interpretation Chest x-ray Status: image reviewed by me Additional comments: small left pleural effusion CCU Progress Note: A/P - Problems (1) ACS (acute coronary syndrome) Current Visit: Yes Status: Acute Code(s): I24.9 - ACUTE ISCHEMIC HEART DISEASE, UNSPECIFIED (2) MICH (acute kidney injury) Current Visit: Yes Status: Acute Code(s): N17.9 - ACUTE KIDNEY FAILURE, UNSPECIFIED (3) Acute respiratory failure Current Visit: Yes Status: Acute Code(s): J96.00 - ACUTE RESPIRATORY FAILURE , UNSP W HYPOXIA OR HYPERCAPNIA Qualifiers: Respiratory failure complication: hypoxia Qualified Code(s): J96.01 - Acute respiratory failure with hypoxia (4) Metabolic acidosis Current Visit: Yes Status: Acute Code(s): E87.2 - ACIDOSIS (5) Metabolic encephalopathy Current Visit: Yes Status: Acute Code(s): G93.41 - METABOLIC ENCEPHALOPATHY (6) Rhabdomyolysis Current Visit: Yes Status: Acute Code(s): M62.82 - RHABDOMYOLYSIS (7) Shock Current Visit: Yes Status: Acute Code(s): R57.9 - SHOCK, UNSPECIFIED - Time Spent with Patient Time (minutes): 35 (cc time) - Plan Plan: Consult renal for possible HD Continue bicarb drip Wean vasopressors as tolerated Cont IV ABX Recheck CK Not weanable from vent will d/w daughter
--- NOTE | 2017-04-21 08:14 | RAD ---
SINGLE VIEW CHEST: Date: 04/21/17 HISTORY: Respiratory failure, on ventilator. FINDINGS: Single view of the chest shows a cardiomediastinal silhouette which is upper limits of normal in size with atherosclerotic calcifications in the aorta. An endotracheal tube is seen with its tip between the clavicles. A NG tube courses off the inferior aspect of the film. There is no evidence of consoli dation or mass. There appears to be a small left pleural effusion. IMPRESSION: Small left pleural effusion. POS: OFF
[2017-04-21] MEDS ORDERED: Heparin 10,000 UNITS/ 10 ML VIAL ONE (09:00)
[2017-04-21] MEDS: Aspirin 325 MG TAB PO SCH (09:36)
[2017-04-21] MEDS: Famotidine/PF 20 mg/2ml Vial SLOW IVP SCH (09:36)
[2017-04-21 11:10] LABS: HBSAg Index 0.43 S/CO (0-0.99); Hep B Core Total Ab Non-Reactive (NonReactive); Hep B Core Total Index 0.08 S/CO (0-0.79); Hep B Surf AB Non-Reactive (NonReactive); Hep B Surf Ag Non-Reactive S/CO (NonReactive); Hep C IgG Ab Non-Reactive (NonReactive); Hep C Index 0.07 S/CO (0-0.79)
[2017-04-21] MEDS ORDERED: Vancomycin HCl 750 MG in Sodium Chloride 0.9% 250 ML 250 ML IVPB SCH (11:15)
[2017-04-21] MEDS ORDERED: Vancomycin HCl 1.25 GM in Sodium Chloride 0.9% 250 ML 250 ML IVPB SCH ×4 (11:15)
[2017-04-21] MEDS ORDERED: Vancomycin HCl 500 MG in Sodium Chloride 0.9% 100 ML IVPB SCH (11:15)
[2017-04-21] MEDS ORDERED: HOLD VANCOMYCIN FOR LEVEL >20 FS SCH (11:15)
[2017-04-21] MEDS ORDERED: VANCOMYCIN IVPB PRN (11:15)
[2017-04-21] MEDS ORDERED: Vancomycin HCl 1 GM in Premix Bag 1 BAG IVPB SCH ×4 (11:15)
[2017-04-21] MEDS: Vasopressin 40 UNIT, Admixture Fee 1 EACH in Sodium Chloride 0.9% 100 ML IV SCH (11:18)
[2017-04-21] MEDS: HumaLOG 300 UNITS/3 ML VIAL SC PRN ×3 (11:21→22:30)
--- NOTE | 2017-04-21 12:59 | CON ---
DATE OF CONSULTATION: 04/21/2017 CONSULTING PHYSICIAN: Dr. Stevenson. REASON FOR CONSULTATION: Acute kidney injury, oliguria. REASON FOR ADMISSION: Found down at home. HISTORY OF PRESENT ILLNESS: An 83-year-old male with a past medical history of hypertension, hyperli pidemia, came to the hospital as he was found down and informed by the neighbor. The patient is curr ently intubated and not able to give a good history. I did discuss with the daughter over the phone. The patient was remaining oliguric with multiorgan failure and Nephrology is currently consulted. Th e patient was also found to have cardiac arrest and also elevated troponin and Cardiology is managing conservatively and is on heparin drip. He is on pressors. PAST MEDICAL HISTORY: Positive for hypertension, wheezing. PAST SURGICAL HISTORY: Not known. HOME MEDICATIONS: Include metoprolol, lisinopril, diltiazem, atorvastatin, and loratadine. ALLERGIES: No known drug allergies. SOCIAL HISTORY: Not obtainable. FAMILY HISTORY: Not available. REVIEW OF SYSTEMS: Could not be obtained due to intubation. PHYSICAL EXAMINATION: GENERAL: This is a well-built male, seen in the ICU, intubated. VITAL SIGNS: Temperature 98.4, pulse 92, respiratory rate 24, blood pressure 131/64. HEENT: Intubated. CARDIOVASCULAR: S1 and S2 heard. RESPIRATORY: Clear anteriorly. GASTROINTESTINAL: Abdomen is soft. MUSCULOSKELETAL: Normal. NEUROLOGICAL: Intubated and sedated. LABORATORY DATA: WBC is 15.9, hemoglobin is 12.2. Potassium is 5.1, BUN 58, creatinine 3.0. ASSESSMENT AND PLAN: 1. Acute kidney injury on chronic kidney disease, stage 2-3. The patient remains oliguric and potas sium is going up. Plan is to start on dialysis. I did discuss the plan with the daughter over the p april and is agreeable. We will consult surgery for placement of dialysis access. 2. Hyponatremia. 3. Hyperkalemia, creeping up. 4. Acidosis. 5. Hypoalbuminemia. 6. Elevated troponin. 7. Anemia, mild. 8. Non-ST elevation myocardial infarction. 9. Mild proteinuria. 10. Acute hypoxic respiratory failure. 11. History of cardiac arrest. Plan is to start on dialysis and monitor renal function. Thank you for the consultation. Plan discussed with Dr. Stevenson.
--- NOTE | 2017-04-21 13:49 | OP ---
PREOPERATIVE DIAGNOSES: Acute renal failure, respiratory failure. POSTOPERATIVE DIAGNOSES: Acute renal failure, respiratory failure. PROCEDURE PERFORMED: Right femoral vein Trialysis catheter. SURGEON: Steve Gordon M.D. ANESTHESIA: 1% Xylocaine. PROCEDURE IN DETAIL: At the patient's bedside, right groin was prepared with Betadine by the nurse, then prepared with ChloraPrep again and the vein previously clipped of hair. Sterile technique used after draping it in routine fashion and femoral vein accessed with trocar catheter and good return of venous blood obtained. J-wire threaded, trocar catheter removed. Skin incised site enlarged sharpl y. Smaller and medium dilators were dilators placed in femoral vein and removed. Distal port of the Trialysis catheter placed over the J-wire in the femoral vein and passing without obstruction into t he iliac and vena cava. Catheter secured with 3-0 nylon suture, each port aspirated blood, flushed w ith heparin flush solution. Sterile dressing applied. Patient tolerated the procedure well.
--- NOTE | 2017-04-21 14:06 | PDOC.PN ---
- Subjective Encounter Start Date: 04/21/17 Encounter Start Time: 14:04 Subjective: remains intubated and sedated - Objective Resuscitation Status: Resuscitation Status FULL:Full Resuscitation MAR Reviewed: Yes Vital Signs & Weight: Vital Signs (12 hours) Temp Pulse Pulse Pulse Resp BP BP 04/21/17 12:00 99.1 F 24 H 04/21/17 10:44 99 04/21/17 10:00 26 H 04/21/17 09:17 96 97 135/69 131/64 04/21/17 08:50 95 96 128/66 135/67 04/21/17 08:01 92 04/21/17 08:00 98.7 F 97 24 H 04/21/17 06:00 24 H 04/21/17 04:00 98.4 F 24 H Pulse Ox Pulse Ox Pulse Ox 04/21/17 12:00 04/21/17 10:44 04/21/17 10:00 04/21/17 09:17 100 100 04/21/17 08:50 99 99 04/21/17 08:01 04/21/17 08:00 99 04/21/17 06:00 04/21/17 04:00 Weight Admit Weight 177 lb 11.081 oz Weight 177 lb 11.081 oz Most Recent Monitor Data Heart Rate from ECG 96 NIBP 135/70 NIBP BP-Mean 101 Respiration from ECG 22 SpO2 93 I&O: 04/20/17 04/21/17 04/22/17 06:59 06:59 06:59 Intake Total 700 7981.1 100 Output Total 500 1305 101 Balance 200 6676.1 -1 Result Diagrams: 04/21/17 04:45 04/21/17 04:45 Additional Labs: Accuchecks 04/21/17 04/21/17 04/20/17 10:18 05:12 22:36 POC Glucose 152 H 130 H 91 04/20/17 04/20/17 15:42 14:18 POC Glucose 82 77 Microbiology 04/19/17 20:00 Urine Straight Catheter Urine Culture - Final NO GROWTH AT 36 HOURS 04/19/17 19:54 Nasal swab Influenza Types A,B Direct EIA - Final 04/19/17 20:35 Venous blood - Left Arm Blood Culture - Preliminary Specimen has been received and culture in progress. No Growth to date. 04/19/17 20:35 Venous blood - Left Arm Blood Culture - Preliminary NO GROWTH AT 48 HOURS 04/19/17 20:30 Venous blood - Right Arm Blood Culture - Preliminary Specimen has been received and culture in progress. No Growth to date. 04/19/17 20:30 Venous blood - Right Arm Blood Culture - Preliminary NO GROWTH AT 48 HOURS 04/19/17 20:00 Urine Straight Catheter Urine Culture - Preliminary NO GROWTH AT 12 HOURS Laboratory Tests 04/19/17 04/19/17 04/19/17 20:31 20:31 23:43 Sodium 127 L Hemoglobin A1c AST 53 H ALT 21 Alkaline Phosphatase 68 Creatine Kinase 1411 H CK-MB (CK-2) 31.0 H* 64.2 H* Troponin I 4.450 H* 6.526 H* 04/20/17 04/20/17 04/20/17 04:51 04:51 05:17 Sodium 128 L Hemoglobin A1c 5.7 AST 96 H ALT 26 Alkaline Phosphatase 58 Creatine Kinase 2684 H CK-MB (CK-2) 104.3 H* Troponin I 11.618 H* 04/20/17 04/20/17 04/20/17 08:37 08:37 15:37 Sodium Hemoglobin A1c AST ALT Alkaline Phosphatase Creatine Kinase 2957 H CK-MB (CK-2) 120.1 H* 104.2 H* Troponin I 14.205 H* 19.640 H* 04/21/17 04/21/17 04:45 04:45 Sodium 129 L Hemoglobin A1c AST 160 H ALT 35 Alkaline Phosphatase 53 Creatine Kinase 4635 H CK-MB (CK-2) Troponin I Phys Exam - Physical Examination Constitutional: NAD ETT HEENT: PERRLA, moist MMs, sclera anicteric ETT Neck: no JVD Respiratory: no wheezing, clear to auscultation bilateral Cardiovascular: RRR, no significant murmur Gastrointestinal: soft, non-tender, no distention, positive bowel sounds Musculoskeletal: no edema, pulses present sedated Skin: no rash Dx/Plan (1) Acute respiratory failure Code(s): J96.00 - ACUTE RESPIRATORY FAILURE, UNSP W HYPOXIA OR HYPERCAPNIA Status: Acute Qualifiers: Respiratory failure complication: hypoxia Qualified Code(s): J96.01 - Acute respiratory failure with hypoxia (2) Cardiac arrest Code(s): I46.9 - CARDIAC ARREST, CAUSE UNSPECIFIED Status: Acute Comment: Coded 04/19/17 (3) ACS (acute coronary syndrome) Code(s): I24.9 - ACUTE ISCHEMIC HEART DISEASE, UNSPECIFIED Status: Acute (4) Rhabdomyolysis Code(s): M62.82 - RHABDOMYOLYSIS Status: Acute (5) Metabolic encephalopathy Code(s): G93.41 - METABOLIC ENCEPHALOPATHY Status: Acute (6) MICH (acute kidney injury) Code(s): N17.9 - ACUTE KIDNEY FAILURE, UNSPECIFIED Status: Acute (7) Metabolic acidosis Code(s): E87.2 - ACIDOSIS Status: Acute (8) Shock Code(s): R57.9 - SHOCK, UNSPECIFIED Status: Acute Comment: Cardiogenic Vs Septic Vs both (9) Sepsis Code(s): A41.9 - SEPSIS, UNSPECIFIED ORGANISM Status: Suspected - Plan continue antibiotics, DVT proph w/SCDs On Heparin drip per CV protocol w ASA per tube.not candidate for invasive -: Vent support per [facility] -: Multiorgan failure requiring HD.Appreciate GS,nephrology input. -: add empiric Vancomycin for possible sepsis.cont Zosyn.no source -: very poor prognosis.anoxic brain injury suspected * . Review of Systems - Review of Systems Other: can not be obtained due to metabolic encephalopathy,sedation,intubation - Medications/Allergies Allergies/Adverse Reactions: Allergies Allergy/AdvReac Type Severity Reaction Status Date / Time No Known Drug Allergies Allergy Unverified 04/19/17 20:09 Medications: Current Medications Aspirin (Aspirin) 325 mg PO DAILY [facility] Last Admin: 04/21/17 09:36 Dose: 325 mg Dextrose/Water (Dextrose 50%) 25 gm SLOW IVP PRN PRN PRN Reason: Hypoglycemia Famotidine (Pepcid) 20 mg SLOW IVP 0900 [facility] Last Admin: 04/21/17 09:36 Dose: 20 mg Glucagon (Glucagon) 1 mg IM PRN PRN PRN Reason: Hypoglycemia Heparin Sodium (Porcine) (Heparin 1,000 Units/Ml (10 Ml)) 4,000 units SLOW IVP [facility] Last Admin: 04/20/17 15:50 Dose: 4,000 unit Hydrocortisone Sodium Succinate (Solu-Cortef) 100 mg IVP Q6HR [facility] Last Admin: 04/21/17 11:21 Dose: 100 mg Dextrose/Water (D5w) 1,000 mls @ 0 mls/hr IV .Q0M PRN; As Directed PRN Reason: Hypoglycemia Sodium Bicarbonate 150 meq/ (Sterile Water) 1,150 mls @ 125 mls/hr IV .Q9H12M DON Last Admin: 04/21/17 11:19 Dose: 1,150 mls Fentanyl Citrate 2,000 mcg/ (Sodium Chloride) 100 mls @ 0 mls/hr IV INF DON; Per Protocol PRN Reason: Protocol Stop: 05/20/17 08:28 Last Admin: 04/21/17 00:37 Dose: 100 mls Fentanyl Citrate (Fentanyl Bolus) 250 mls @ 0 mls/hr IVPB PRN PRN; As Directed PRN Reason: Breakthrough pain Stop: 05/20/17 08:28 Piperacillin Sod/Tazobactam (Sod 2.25 gm/ Sodium Chloride) 100 mls @ 200 mls/ hr IVPB 0100,0900,1700 DON Last Admin: 04/21/17 09:36 Dose: 100 mls Norepinephrine Bitartrate (Levophed) 250 mls @ 0 mls/hr IVPB INF PRN; Protocol ; Titrate PRN Reason: Blood Pressure Last Admin: 04/20/17 19:16 Dose: 250 mls Heparin Sodium/Dextrose (Heparin 25,000 Units/D5w 500 Ml) 500 mls @ 0 mls/hr IV INF DON; As Directed PRN Reason: Protocol Last Admin: 04/20/17 15:51 Dose: 500 mls Acetaminophen 1,000 mg/ Device 100 mls @ 400 mls/hr IVPB Q6H PRN PRN Reason: Fever/Mild Pain Stop: 04/21/17 19:46 Vasopressin 40 unit/Miscellaneous Medication 1 each/ Sodium Chloride 102 mls @ 0 mls/hr IV INF DON; As Directed PRN Reason: Protocol Last Admin: 04/21/17 11:18 Dose: 102 mls Phenylephrine HCl 20 mg/ (Sodium Chloride) 252 mls @ 0 mls/hr IV INF DON; Titrate PRN Reason: Protocol Last Admin: 04/21/17 11:00 Dose: 252 mls Vancomycin HCl 1.25 gm/ Sodium (Chloride) 250 mls @ 166.667 mls/hr IVPB WILLCALL DON Vancomycin HCl 1 gm/ Device 200 mls @ 200 mls/hr IVPB WILLCALL DON Vancomycin HCl 750 mg/ Sodium (Chloride) 250 mls @ 250 mls/hr IVPB WILLCALL DON Vancomycin HCl 500 mg/ Sodium (Chloride) 100 mls @ 100 mls/hr IVPB [facility] Insulin Human Lispro (Humalog) 0 units SC .MILD SLIDING SCALE PRN PRN Reason: Mild Correctional Scale Last Admin: 04/21/17 11:21 Dose: 2 unit Lorazepam (Ativan) 2 mg SLOW IVP Q2H PRN PRN Reason: Anxiety to achieve Mera 2-3 Stop: 05/20/17 08:28 Miscellaneous Medication (Pharmacy To Dose) 0 each IVPB PRN PRN PRN Reason: VANC MONITORING Morphine Sulfate (Morphine) 2 mg SLOW IVP Q2H PRN PRN Reason: Breakthrough pain Stop: 05/20/17 08:28 Hold Vancomycin For (Level >20) 0 each FS .AT DIAL[facility] Ondansetron HCl (Zofran) 4 mg IVP Q6H PRN PRN Reason: Nausea/Vomiting Propofol (Diprivan) 1,000 mg IV INF PRN; Protocol PRN Reason: TO ACHIEVE MERA SCORE 2-3 Stop: 05/20/17 08:28 Sodium Chloride (Flush - Normal Saline) 10 ml IVF Q12HR [facility] Last Admin: 04/21/17 09:37 Dose: 10 ml Sodium Chloride (Flush - Normal Saline) 10 ml IVF PRN PRN PRN Reason: Saline Flush
--- NOTE | 2017-04-21 14:39 | CON ---
DATE OF CONSULTATION: 04/21/2017 HISTORY OF PRESENT ILLNESS: Akira Payne is an 83-year-old male patient in ICU with end-stage ashley al disease who I have been asked by Dr. Warner to place a cuffed tunnel dialysis catheter. The kat ent has a history of alcohol liver disease, diabetes, end-stage renal disease and has dysphagia and h as a Dobbhoff placed, waiting to be fed after the dialysis catheter is placed. He has a right IJ tri ple lumen catheter. He has peripheral vascular disease, has had a left fem-pop below the knee bypass in [place] 2 years ago, had a coronary artery bypass grafting in [place] 3 years ago. He has dopple rable pulses in the left foot. He has an open wound over the metatarsophalangeal joint, left foot. This has been followed by Podiatry. Cardiovascular Surgery has seen the patient and felt that his vascular situation is optimized and maykel t he may or may not heal this wound. I have talked to Dr. Baltazar Dexter who has been seeing him and the patient will need an amputation of the left small toe and metatarsal. The patient is at risk for li mb loss. The patient is undergoing ultrasound vein mapping both arms anticipating future long-term d ialysis need which will be established next week. ALLERGIES: None. PAST MEDICAL HISTORY: 1. Coronary artery disease, status post bypass 3 years ago in [place] cardiac angiogram a year later with all grafts patent. He has followed with a community service worker in [place], but has not yet established a community service worker locally. He denies any cardiac problems post-bypass. 2. Chronic obstructive pulmonary disease. 3. Peripheral artery disease. 4. Hypertension. The patient has been seen by Dr. Richter this hospitalization. The patient has been followed Dr. Toby Molina and was seen by Dr. Muhammad 5. History of alcoholism. 6. History of seizures. 7. 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 8. Skin cancers removed. PAST SURGICAL HISTORY: Coronary bypass grafting 3 years ago, coronary angiogram a year later in [facility]. He was told all grafts were patent, left fem-pop bypass graft, saphenous vein harvest left leg for his bypass. Skin cancer removal, amputation of his first and second toes of left foot and his fi rst right great toe. ALCOHOL: Alcoholism. He drinks 2-3 bottles of wine a day. 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 TOBACCO: Cessation 5-10 years ago. HOME MEDICATIONS: Amlodipine, atorvastatin, glipizide, hydrochlorothiazide, lisinopril, metformin, o meprazole, Pletal, hydralazine. PHYSICAL EXAMINATION: VITAL SIGNS: Height 5 foot 10, 196 pounds, blood pressure 160/69, heart rate 79. HEENT: Unremarkable. LUNGS: Clear to auscultation. CARDIAC: Regular rate and rhythm without murmur or gallop. ABDOMEN: Soft. EXTREMITIES: Palpable femoral pulses bilaterally, palpable saphenous vein harvest left leg sternotom y scar chest, ulceration left foot laterally, metatarsophalangeal joint, fifth toe, a small celluliti s, skin breakdown exposed bone and phalanx, dopplerable pulses strong. LABORATORY: White count 11, hemoglobin 8.4, sodium 142, BUN 75, creatinine 5.86, estimated GFR 10, b ilirubin 7.5. AST and ALT 88 and 81. ASSESSMENT AND PLAN: 1. End-stage renal disease. He will need dialysis access. We will plan placement of cuffed tunnel dialysis catheter today. Avoid IV access and blood draws in his arms, plan placement of a more perma nent access next week. Ultrasound vein mapping both arms being performed. 2. 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 Bilirubin is elevated. His PT is 16, he has a coag ulopathy, platelet count was 39,000 when he came in, 147,000 now with thrombocytopenia result of his liver disease. 3. Coronary artery disease, stable, being evaluated by Dr. Muhammad. 4. Peripheral artery disease, left fem-pop bypass. 5. 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 I have talked to Dr. Baltazar Dexter, h e will need amputation of the left small toe and metatarsal with healing of the wound secondarily wit h wound VAC application. Dr. Dexter will care for that. 6. Dysphagia, cannot swallow has a Dobhoff feeding tube in place.
--- NOTE | 2017-04-21 15:16 | HP ---
HISTORY OF PRESENT ILLNESS: Mr. Akira Payne is an 83-year-old male patient who was found down at [facility], brought to the emergency room and evaluated on 04/19/2017. CAT scan of the brain was unremarkabl e. Dr. Corby Fuller evaluated him, Hospitalist and Cardiology consulted as well as Pulmonary Medicine . The patient required intubation. He had been down at home for an unknown period of time. Cardiac enzymes are elevated, but per Dr. Richter were in line with rhabdomyolysis and then a cardiac even t. He is in acute renal failure. I have been asked by Dr. Warner to see him regarding placement of hemodialysis catheter. He has a left femoral vein triple lumen catheter. His potassium is 5.1, cre atinine 3.6, BUN 28, GFR 16. Urine output 205 over the last 24 hours. It was 500 mL in the 24 hours prior. Plans for placement of a temporary dialysis catheter, hoping for renal recovery. In the cari ntime, we will avoid IV access, blood draws from his left femoral vein triple lumen catheter and the IV access part of the Trialysis catheter in the right groin level placed. ALLERGIES: None. SOCIAL HISTORY: Tobacco, not known. Alcohol, not known. MEDICATIONS: List per hospital records, metoprolol 50 b.i.d., lisinopril 40 daily, diltiazem 240 mook ly, atorvastatin 20 mg daily, loratadine 10 mg p.r.n. PAST SURGICAL HISTORY: Unknown. PAST MEDICAL HISTORY: Hypertension, otherwise unknown. The patient apparently has been in the [facility] in the past and reported that to the nurses some time prior to intubation. PHYSICAL EXAMINATION: VITAL SIGNS: 99.1, 145/70, 104. HEENT: Unremarkable. LUNGS: Clear to auscultation. CARDIAC: Regular rate and rhythm without murmur or gallop. ABDOMEN: Soft. EXTREMITIES: Unremarkable. Palpable radial pulses. Left femoral vein, triple lumen catheter. No s cars on his abdomen. The patient is unresponsive. ASSESSMENT AND PLAN: Unresponsive patient, respiratory failure on the ventilator. We would plan charlene cement of a temporary hemodialysis catheter, right femoral vein. Family has consented. We would odalys e his arms for future dialysis access if renal recovery is not evident. Please call if necessary for more permanent access.
--- NOTE | 2017-04-21 15:39 | ULT ---
BILATERAL UPPER EXTREMITY VENOUS MAPPING ULTRASOUND 04/21/17 PROVIDED CLINICAL HISTORY: Venous mapping. FINDINGS: RIGHT UPPER EXTREMITY BRACHIAL ARTERY: 4 mm RADIAL ARTERY: 1.1 mm ULNAR ARTERY: 2.1 mm CEPHALIC VEIN Proximal Arm: 1.6 mm Mid Arm: 1.6 mm Distal Arm: 1.5 mm Antecubital Fossa: 1.7 mm Proximal Forearm: 1.6 mm Mid Forearm: 1.3 mm Distal Forearm: 1.2 mm BASILIC VEIN Proximal Arm: 4.2 mm Mid Arm: 3.5 mm Distal Arm: 2.4 mm Antecubital Fossa: 2.5 mm Proximal Forearm: 1.4 mm Mid Forearm: 1.4 mm Distal Forearm: 1.1 mm LEFT UPPER EXTREMITY BRACHIAL ARTERY: 4.2 mm RADIAL ARTERY: 1.3 mm ULNAR ARTERY: 1.6 mm CEPHALIC VEIN Proximal Arm: Not visualized Mid Arm: Not visualized Distal Arm: Not visualized Antecubital Fossa: 1.4 mm Proximal Forearm: 1.0 mm Mid Forearm: 1.0 mm Distal Forearm: 1.2 mm BASILIC VEIN Proximal Arm: 2.9 mm Mid Arm: 2.7 mm Distal Arm: 2.0 mm Antecubital Fossa: 1.8 mm Proximal Forearm: 1.2 mm Mid Forearm: 1.6 mm Distal Forearm: 1.1 mm IMPRESSION: Venous mapping as above. POS: ABILIO
--- NOTE | 2017-04-21 19:25 | PRG ---
DATE OF SERVICE: 04/21/2017 SUBJECTIVE: Mr. Payne status is unchanged. His creatinine has worsened. He is less tachycardic, off of Levophed. He was placed on Dre-Synephrine in addition to phenylephrine. Antibiotic therapy has been continued. OBJECTIVE: VITAL SIGNS: Heart rate 98, blood pressure 131/61, respirations 24. GENERAL: The patient is currently intubated and sedated. LUNGS: Clear to auscultation. CARDIAC: Regular rate and rhythm. ABDOMEN: Soft, nontender, and nondistended. EXTREMITIES: No edema. PERTINENT LABORATORY DATA: Hemoglobin is 12.2 Creatinine 3.65, which is up from 2.7. IMPRESSION: 1. Respiratory failure. 2. Non-Q wave myocardial infarction. 3. Sepsis. 4. Acute kidney injury. RECOMMENDATIONS: Mr. Payne's status is currently guarded. He remains on pressor agents. He has not been positive for microorganisms for blood cultures. We will continue antibiotic therapy in addition to heparin. We will anticipate discontinuing heparin tomorrow. A temporary dialysis catheter will be placed for a temporary dialysis.
[2017-04-22] MEDS: Hydrocortisone Sod Succ/PF 100 mg/2 ml Vial IVP SCH ×5 (00:56→23:16)
[2017-04-22] MEDS: Piperacillin/Tazobactam 2.25 GM in Sodium Chloride 0.9% 100 ML IVPB SCH ×3 (00:56→17:24)
[2017-04-22] MEDS: Heparin 25,000 units/D5W 500 ML IV SCH (02:36)
[2017-04-22] MEDS: Phenylephrine HCL 20 MG in Sodium Chloride 0.9% 250 ML 250 ML IV SCH (02:37)
[2017-04-22] MEDS: Vasopressin 40 UNIT, Admixture Fee 1 EACH in Sodium Chloride 0.9% 100 ML IV SCH ×2 (04:11→22:24)
[2017-04-22] MEDS: Sodium Bicarbonate 150 MEQ in Sterile Water Injection 1,000 ML IV SCH (04:12)
[2017-04-22] MEDS: HumaLOG 300 UNITS/3 ML VIAL SC PRN ×3 (04:25→16:24)
[2017-04-22 04:53] LABS: INR-International Normal Ratio 1.8; Prothrombin Time 21.5 SEC (12.0-14.7)
[2017-04-22 04:58] LABS: PTT 129.4 SEC (22.9-36.1)
[2017-04-22 05:02] LABS: Band 33 % (5-11); Hemoglobin 11.5 g/dL (14.0-18.0); Lymphocytes 5 % (21-51); MDiff Complete? YES; Mean Corpuscular HGB CONC 34.3 g/dL (32.0-36.0); Mean Corpuscular Hemoglobin 33.2 pg (27.0-31.0); Mean Platelet Volume 7.9 fL (7.4-10.4); Monocytes 1 % (0-10); Neutrophil 61 % (42-75); PLT Morphology Comment Appears Decreased; Platelet Count 110 thou/uL (130-400); RBC Distribution Width 11.8 % (11.5-14.5); Red Blood Cell (RBC) Count 3.47 mill/uL (4.70-6.10); White Blood Cell (WBC) Count 12.8 thou/uL (4.8-10.8)
[2017-04-22 05:06] LABS: ALT (SGPT) 82 U/L (8-55); AST (SGOT) 320 U/L (5-34); Albumin 2.2 g/dL (3.4-4.8); Alkaline Phosphatase 51 U/L (40-150); Anion Gap 19 mmol/L (10-20); BUN (Urea Nitrogen) 26 mg/dL (8.4-25.7); Bilirubin, Total 1.3 mg/dL (0.2-1.2); Calc. Creatinine Clearance 17 mL/min (70-130); Calcium 6.8 mg/dL (7.8-10.44); Carbon Dioxide 24 mmol/L (23-31); Chloride 95 mmol/L (98-107); Estimated GFR-MDRD 16; Globulin 2.1 g/dL (2.4-3.5); Glucose 185 mg/dL (83-110); Potassium 4.1 mmol/L (3.5-5.1); Protein, Total 4.3 g/dL (5.8-8.1); Sodium 134 mmol/L (136-145)
[2017-04-22 05:42] LABS: CK (CPK) 10055 U/L (30-200)
[2017-04-22 07:42] LABS: CO2 Tension 25.6 mmHg (35.0-45.0); pH, Arterial 7.58 (7.35-7.45)
[2017-04-22 07:43] LABS: Actual Bicarbonate (HCO3a) 22.3 mEq/L (22-26); Calcium, Ionized 0.8 mmol/L (1.12-1.30); Hematocrit-ABG 33.7 % (42.0-52.0); Hemoglobin (Hb) 11.3 g/dL (14.0-18.0); O2 Tension (PaO2) 46.5 mmHg (80.0-100.0); Puncture Site RRA
--- NOTE | 2017-04-22 07:49 | RAD ---
SINGLE VIEW OF THE CHEST: COMPARISON: 04/21/17. HISTORY: Ventilated patient with respiratory failure. FINDINGS: A single view of the chest shows an enlarged but stable cardiomediastinal silhouette. The lines and tubes are unchanged in position. There are bilateral veil-like opacities which likely represent smal l to moderate pleural effusions. IMPRESSION: Bilateral pleural effusions. POS: OFF
[2017-04-22 08:43] LABS: Vancomycin, Random 16.2 ug/mL (See Comment)
--- NOTE | 2017-04-22 08:45 | PRG ---
DATE OF SERVICE: 04/22/2017 Thirty five minutes critical care time. SUBJECTIVE: The patient is demonstrating seizure type activity with twitching around his eyes. He h as been unresponsive overnight. PHYSICAL EXAMINATION: VITAL SIGNS: Temperature is 99.1, pulse 91, blood pressure 122/61. He remains on Dre-Synephrine dri p and vasopressin drip, but has been weaned off the Levophed. A 24-hour intake was 4842, output 275 plus 1000 taken out by dialysis. HEENT: Pupils sluggishly reactive. Sclerae are anicteric. Oropharynx dry. NECK: No JVD, no bruits. LUNGS: Clear to auscultation without wheezing, but he has diminished breath sounds at both bases. CARDIAC: S1 and S2 regular. ABDOMEN: Soft, nontender. EXTREMITIES: No clubbing, cyanosis. Trace edema. LABORATORY DATA: Sodium 134, potassium 4.1, chloride 95, CO2 is 24, BUN 26, creatinine 3.6, glucose 185. AST 320, ALT 82. CPK 10,055. Albumin 2.2. PH 7.58, pCO2 of 25, pO2 of 46, was on SIMV rate 2 4, tidal volume 450, PEEP 5, pressure support 10, FIO2 of 40%. PTT 129.4. White blood cell count 12 .9, hematocrit 33.7, platelet count 110. Chest x-ray shows pulmonary vascular congestion and bilater al effusions. ASSESSMENT: 1. Significant fluid overload. 2. Status post arrest. 3. Rhabdomyolysis. 4. Acute renal failure. 5. Metabolic acidosis. 6. Acute respiratory distress syndrome. PLAN: 1. Lower respiratory rate, on vent. 2. EEG and Neurology consultation. 3. Continue dialysis. 4. Stop heparin drip - discussed Dr. Richter. 5. Continue aspirin. 6. Follow serial CPKs. 7. I think the prognosis for recovery at this point is quite poor.
[2017-04-22] MEDS: Heparin 5,000 UNITS/ML VIAL SC SCH ×2 (09:19→22:27)
[2017-04-22] MEDS: Aspirin 325 MG TAB PO SCH (09:19)
[2017-04-22] MEDS: Famotidine/PF 20 mg/2ml Vial SLOW IVP SCH (09:19)
[2017-04-22] MEDS: Sodium Chloride 0.9% 1,000 ML IV SCH (09:21)
[2017-04-22 09:57] LABS: CKMB 56.2 ng/mL (0-6.6)
[2017-04-22] MEDS ORDERED: Vancomycin HCl 1 GM in Premix Bag 1 BAG IVPB SCH (10:00)
[2017-04-22] MEDS ORDERED: levETIRAcetam 2,000 MG in Sodium Chloride 0.9% 150 ML IVPB SCH (10:15)
--- NOTE | 2017-04-22 10:37 | CON ---
DATE OF CONSULTATION: 04/22/2017 CONSULTING SERVICE: Hospitalist Service. IMPRESSION: Seizures, probably secondary to his renal failure. PLAN: Keppra loading dose followed by 500 mg twice a day. HISTORY OF PRESENT ILLNESS: Mr. Payne is an 82-year-old gentleman with past history of tachycardia an d hypertension. He was found down in his kitchen and transferred here; initially he was alert and co operative. He was taken down to CT for a scan and had a respiratory arrest. He was placed on ventil atory support. Since returned to the ICU, he has been having intermittent focal twitching of the lef t jaw which can subsequently spread into a more generalized irregular twitching of the head, face and trunk. He is on a fentanyl drip as well as some pressors earlier to help improve his blood pressure . There is no past history of any neurologic problems according to his daughter. 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 There was a thought to be some po ssible cerebral hemorrhage, but this was ruled out with the second CT and found to be artifactual. H is BUN was 26, creatinine 3.61. His glucoses have been running in above 100. PAST MEDICAL HISTORY: Tachycardia. FAMILY HISTORY: Noncontributory. SOCIAL HISTORY: No tobacco or alcohol use currently. REVIEW OF SYSTEMS: Not obtainable. MEDICATIONS: Reviewed. PHYSICAL EXAMINATION: VITAL SIGNS: Pulse 93, blood pressure 112/68, and saturations 100%. HEENT: Pupils are equal and minimally reactive. Conjunctivae clear. Cranium normocephalic and atra umatic. NEUROLOGIC: He is sedated. He had symmetric tone. Plantar responses were upgoing bilaterally. No abnormal movements were seen other than when he had a witnessed seizure. LABORATORY STUDIES: Showed a CK of 10,055. IMAGING: CT scan of the brain was reviewed. SUMMARY: Elderly gentleman with new-onset renal insufficiency, possibly due to dehydration with seco ndary intermittent seizure activity. His EEG showed quite a bit of muscle artifact, but no clear sei zure activity. I would go ahead and treat him with anticonvulsants and pursue an MRI of the brain on ce he is more stable.
--- NOTE | 2017-04-22 12:20 | PDOC.PN ---
- Subjective Encounter Start Date: 04/22/17 Encounter Start Time: 12:18 Subjective: family at bedside,updated about care plan -: seizures noted. - Objective Resuscitation Status: Resuscitation Status FULL:Full Resuscitation MAR Reviewed: Yes Vital Signs & Weight: Vital Signs (12 hours) Temp Pulse Resp BP 04/22/17 10:53 88 122/58 L 04/22/17 08:00 99.1 F 04/22/17 07:09 94 110/57 L 04/22/17 06:00 24 H 04/22/17 04:00 99.1 F 24 H 04/22/17 02:00 24 H Weight Admit Weight 177 lb 11.081 oz Weight 205 lb 14.588 oz Most Recent Monitor Data Heart Rate from ECG 91 NIBP 106/49 NIBP BP-Mean 74 Respiration from ECG 16 SpO2 97 I&O: 04/21/17 04/22/17 04/23/17 06:59 06:59 06:59 Intake Total 7996.6 4842.6 7.9 Output Total 1305 275 3 Balance 6691.6 4567.6 4.9 Result Diagrams: 04/22/17 04:41 04/22/17 04:41 Additional Labs: Accuchecks 04/22/17 04/21/17 04/21/17 04:21 22:27 18:01 POC Glucose 177 H 158 H 160 H Microbiology 04/19/17 20:00 Urine Straight Catheter Urine Culture - Final NO GROWTH AT 36 HOURS 04/19/17 19:54 Nasal swab Influenza Types A,B Direct EIA - Final 04/19/17 20:35 Venous blood - Left Arm Blood Culture - Preliminary NO GROWTH AT 48 HOURS 04/19/17 20:30 Venous blood - Right Arm Blood Culture - Preliminary NO GROWTH AT 48 HOURS Laboratory Tests 04/19/17 04/19/17 04/19/17 20:31 20:31 20:31 Sodium 127 L Creatinine 2.94 H Total Bilirubin 1.2 AST 53 H ALT 21 Alkaline Phosphatase 68 Creatine Kinase 1411 H Troponin I 4.450 H* B-Natriuretic Peptide 133.6 H Lipase Hep Bs Antigen Hep Bs Antibody Hep B Core Total Ab Hepatitis C Antibody 04/19/17 04/20/17 04/20/17 23:43 04:51 05:17 Sodium 128 L Creatinine 2.71 H Total Bilirubin 1.1 AST 96 H ALT 26 Alkaline Phosphatase 58 Creatine Kinase 2684 H Troponin I 6.526 H* 11.618 H* B-Natriuretic Peptide Lipase 14 Hep Bs Antigen Hep Bs Antibody Hep B Core Total Ab Hepatitis C Antibody 04/20/17 04/20/17 04/20/17 08:37 08:37 15:37 Sodium Creatinine Total Bilirubin AST ALT Alkaline Phosphatase Creatine Kinase 2957 H Troponin I 14.205 H* 19.640 H* B-Natriuretic Peptide Lipase Hep Bs Antigen Hep Bs Antibody Hep B Core Total Ab Hepatitis C Antibody 04/21/17 04/21/17 04/21/17 04:45 04:45 10:03 Sodium 129 L Creatinine 3.65 H Total Bilirubin 1.0 AST 160 H ALT 35 Alkaline Phosphatase 53 Creatine Kinase 4635 H Troponin I B-Natriuretic Peptide Lipase 14 Hep Bs Antigen Non-Reactive Hep Bs Antibody Non-Reactive Hep B Core Total Ab Non-Reactive Hepatitis C Antibody Non-Reactive 04/22/17 04:41 Sodium 134 L Creatinine 3.61 H Total Bilirubin 1.3 H AST 320 H ALT 82 H Alkaline Phosphatase 51 Creatine Kinase 55912 H Troponin I B-Natriuretic Peptide Lipase Hep Bs Antigen Hep Bs Antibody Hep B Core Total Ab Hepatitis C Antibody Phys Exam - Physical Examination active seizures noted involving eys and jerks in extremities HEENT: moist MMs Neck: no JVD decreased at bases Cardiovascular: RRR, no significant murmur Gastrointestinal: soft, no distention Musculoskeletal: no edema, pulses present myoclonic jerks noted Skin: no rash Dx/Plan (1) Seizures Code(s): R56.9 - UNSPECIFIED CONVULSIONS Status: Acute (2) Acute respiratory failure Code(s): J96.00 - ACUTE RESPIRATORY FAILURE, UNSP W HYPOXIA OR HYPERCAPNIA Status: Acute Qualifiers: Respiratory failure complication: hypoxia Qualified Code(s): J96.01 - Acute respiratory failure with hypoxia (3) Cardiac arrest Code(s): I46.9 - CARDIAC ARREST, CAUSE UNSPECIFIED Status: Acute Comment: Coded 04/19/17 (4) ACS (acute coronary syndrome) Code(s): I24.9 - ACUTE ISCHEMIC HEART DISEASE, UNSPECIFIED Status: Acute (5) Rhabdomyolysis Code(s): M62.82 - RHABDOMYOLYSIS Status: Acute (6) Metabolic encephalopathy Code(s): G93.41 - METABOLIC ENCEPHALOPATHY Status: Acute (7) MICH (acute kidney injury) Code(s): N17.9 - ACUTE KIDNEY FAILURE, UNSPECIFIED Status: Acute (8) Metabolic acidosis Code(s): E87.2 - ACIDOSIS Status: Acute (9) Shock Code(s): R57.9 - SHOCK, UNSPECIFIED Status: Acute Comment: Cardiogenic Vs Septic Vs both (10) Sepsis Code(s): A41.9 - SEPSIS, UNSPECIFIED ORGANISM Status: Suspected - Plan calles catheter, continue antibiotics, DVT proph w/heparin, DVT proph w/SCDs remains Oliguric. started on HD.monitor labs.avoid nephrotoxins -: add Anti-epileptics per neurology.Concern for CVA.too unstable for scans -: heparin drip stopped per cardiology.monitor p;latelets-down trend noted -: empiric ABx. Cx negative so far -: CK-MB trending down.most likley Rhabdomyolysis elevating CK * .HD per nephrology. * still on two pressors. * poor prognosis.Family aware,. * daily labs Review of Systems - Review of Systems Other: unobtainable due to encephalopathic - Medications/Allergies Allergies/Adverse Reactions: Allergies Allergy/AdvReac Type Severity Reaction Status Date / Time No Known Drug Allergies Allergy Unverified 04/19/17 20:09 Medications: Current Medications Aspirin (Aspirin) 325 mg PO DAILY [facility] Last Admin: 04/22/17 09:19 Dose: 325 mg Dextrose/Water (Dextrose 50%) 25 gm SLOW IVP PRN PRN PRN Reason: Hypoglycemia Famotidine (Pepcid) 20 mg SLOW IVP 0900 [facility] Last Admin: 04/22/17 09:19 Dose: 20 mg Glucagon (Glucagon) 1 mg IM PRN PRN PRN Reason: Hypoglycemia Heparin Sodium (Porcine) (Heparin) 5,000 units SC BID [facility] Last Admin: 04/22/17 09:19 Dose: 5,000 units Hydrocortisone Sodium Succinate (Solu-Cortef) 100 mg IVP Q6HR [facility] Last Admin: 04/22/17 06:39 Dose: 100 mg Dextrose/Water (D5w) 1,000 mls @ 0 mls/hr IV .Q0M PRN; As Directed PRN Reason: Hypoglycemia Fentanyl Citrate 2,000 mcg/ (Sodium Chloride) 100 mls @ 0 mls/hr IV INF DON; Per Protocol PRN Reason: Protocol Stop: 05/20/17 08:28 Last Admin: 04/21/17 00:37 Dose: 100 mls Fentanyl Citrate (Fentanyl Bolus) 250 mls @ 0 mls/hr IVPB PRN PRN; As Directed PRN Reason: Breakthrough pain Stop: 05/20/17 08:28 Piperacillin Sod/Tazobactam (Sod 2.25 gm/ Sodium Chloride) 100 mls @ 200 mls/ hr IVPB 0100,0900,1700 DON Last Admin: 04/22/17 09:20 Dose: 100 mls Norepinephrine Bitartrate (Levophed) 250 mls @ 0 mls/hr IVPB INF PRN; Protocol ; Titrate PRN Reason: Blood Pressure Last Admin: 04/20/17 19:16 Dose: 250 mls Vasopressin 40 unit/Miscellaneous Medication 1 each/ Sodium Chloride 102 mls @ 0 mls/hr IV INF DON; As Directed PRN Reason: Protocol Last Admin: 04/22/17 04:11 Dose: 102 mls Phenylephrine HCl 20 mg/ (Sodium Chloride) 252 mls @ 0 mls/hr IV INF DON; Titrate PRN Reason: Protocol Last Admin: 04/22/17 02:37 Dose: 252 mls Vancomycin HCl 1.25 gm/ Sodium (Chloride) 250 mls @ 166.667 mls/hr IVPB WILLCALL DON Vancomycin HCl 1 gm/ Device 200 mls @ 200 mls/hr IVPB WILLCALL DON Vancomycin HCl 750 mg/ Sodium (Chloride) 250 mls @ 250 mls/hr IVPB WILLCALL DON Vancomycin HCl 500 mg/ Sodium (Chloride) 100 mls @ 100 mls/hr IVPB WILLCALL DON Sodium Chloride (Normal Saline 0.9%) 1,000 mls @ 50 mls/hr IV .Q20H DON Last Admin: 04/22/17 09:21 Dose: 1,000 mls Levetiracetam 500 mg/ Device 100 mls @ 200 mls/hr IVPB 1000,2200 DON Insulin Human Lispro (Humalog) 0 units SC .MILD SLIDING SCALE PRN PRN Reason: Mild Correctional Scale Last Admin: 04/22/17 11:18 Dose: 2 unit Lorazepam (Ativan) 2 mg SLOW IVP Q2H PRN PRN Reason: Anxiety to achieve Mera 2-3 Stop: 05/20/17 08:28 Miscellaneous Medication (Pharmacy To Dose) 0 each IVPB PRN PRN PRN Reason: VANC MONITORING Morphine Sulfate (Morphine) 2 mg SLOW IVP Q2H PRN PRN Reason: Breakthrough pain Stop: 05/20/17 08:28 Hold Vancomycin For (Level >20) 0 each FS .AT DIALYSIS [facility] Ondansetron HCl (Zofran) 4 mg IVP Q6H PRN PRN Reason: Nausea/Vomiting Propofol (Diprivan) 1,000 mg IV INF PRN; Protocol PRN Reason: TO ACHIEVE MERA SCORE 2-3 Stop: 05/20/17 08:28 Sodium Chloride (Flush - Normal Saline) 10 ml IVF Q12HR DON Last Admin: 04/22/17 09:20 Dose: 10 ml Sodium Chloride (Flush - Normal Saline) 10 ml IVF PRN PRN PRN Reason: Saline Flush
--- NOTE | 2017-04-22 14:06 | PRG ---
DATE OF SERVICE: 04/22/2017 SUBJECTIVE: Mr. Payne's status is unchanged. He continues to be supported on the ventilator. There has been some evidence of muscle twitching concern for seizure disorder. Neurology has been consulte d. His CK was elevated at 10,000. His CK-MB continues to be down trending and it is down from 104 down to 56. PHYSICAL EXAMINATION: VITAL SIGNS: Blood pressure 120/58, pulse 88, temperature afebrile. LUNGS: Clear to auscultation. CARDIAC: Regular rate and rhythm. ABDOMEN: Soft, nontender, nondistended. EXTREMITIES: 1-2+ pitting edema. PERTINENT LABORATORY DATA: Creatinine 3.61, sodium 134, CK of 10,000 with an MB of 56, total protein 4.3. IMPRESSION: 1. Rhabdomyolysis. 2. Respiratory failure. 3. ?seizure disorder. RECOMMENDATIONS: The CK and CK-MB have confirmed likely rhabdomyolysis as the primary insult. This does not appear to be consistent with myocardial injury and more consistent with rhabdomyolysis. Con tinued supportive care is recommended. He has received a copious amount of IV fluids over the last 3 days. His kidney function has continued to decline. He is now requiring dialysis. Prognosis appea rs poor. From a CV standpoint, his heart function appears normal, although with a limited study. He continues to be supported by pressor agents.
--- NOTE | 2017-04-22 20:39 | PRG ---
DATE OF SERVICE: 04/22/2017 SUBJECTIVE: The patient was seen and examined in ICU, intubated. The patient remains intubated and making a minimal amount of urine. Family was at the bedside. The patient had seizure last night and having an EEG done. OBJECTIVE: GENERAL: This is a well-built white male who is in ICU. VITAL SIGNS: Temperature 99.1, pulse 72, respiratory rate 16, blood pressure 100/44. HEENT: Intubated. NECK: Supple. CARDIOVASCULAR: S1, S2 heard. RESPIRATORY: Clear. GI: Abdomen is soft. MUSCULOSKELETAL: 1+ edema. DERMATOLOGIC: No skin rash. NEUROLOGIC: Intubated and sedated. Has seizure last night. PSYCHIATRIC: Mood and affect normal. LABORATORY DATA: Potassium 4.0, BUN is 26, creatinine 3.6, AST is 320, ALT is 82. Albumin is 3.2. Hemoglobin is 11.5. CK level was 10,055. ASSESSMENT AND PLAN: 1. Acute kidney injury on chronic kidney disease stage 2, started on dialysis yesterday, tolerated w ell. Patient had a seizure this morning. Plan is to hold dialysis. He had good clearance, still no t making much urine. 2. Hyponatremia. 3. Hyperkalemia, better with dialysis. 4. Acidosis, stable. 5. Anemia. 6. Acute hypoxic respiratory failure. 7. History of cardiac arrest. Plan is to continue on dialysis as tolerated. No acute indication for dialysis today.
--- NOTE | 2017-04-23 01:44 | PDOC.EVN ---
Event Note - Event Note Event Note: RN called - Patient tachycardic in 130s. Phenylephrine weaned off. Now on Vasopressin. Will cont to monitor.
[2017-04-23] MEDS: Piperacillin/Tazobactam 2.25 GM in Sodium Chloride 0.9% 100 ML IVPB SCH ×3 (01:57→17:00)
[2017-04-23 04:49] LABS: ALT (SGPT) 123 U/L (8-55); AST (SGOT) 285 U/L (5-34); Albumin 2.2 g/dL (3.4-4.8); Alkaline Phosphatase 43 U/L (40-150); Anion Gap 16 mmol/L (10-20); BUN (Urea Nitrogen) 41 mg/dL (8.4-25.7); Bilirubin, Total 1.5 mg/dL (0.2-1.2); Calc. Creatinine Clearance 15 mL/min (70-130); Calcium 6.9 mg/dL (7.8-10.44); Carbon Dioxide 27 mmol/L (23-31); Chloride 97 mmol/L (98-107); Estimated GFR-MDRD 12; Globulin 2.3 g/dL (2.4-3.5); Glucose 156 mg/dL (83-110); Magnesium 1.4 mg/dL (1.6-2.6); Phosphorus 6.5 mg/dL (2.3-4.7); Potassium 4.2 mmol/L (3.5-5.1); Protein, Total 4.5 g/dL (5.8-8.1); Sodium 136 mmol/L (136-145)
[2017-04-23 05:02] LABS: CK (CPK) 7052 U/L (30-200)
[2017-04-23 05:29] LABS: Band 5 % (5-11); Bite Cells SLIGHT = 2-5 cells (100X) (0-1/hpf); Hemoglobin 10.7 g/dL (14.0-18.0); Lymphocytes 6 % (21-51); MDiff Complete? YES; Macrocytosis SLIGHT = 6-15 cells (100X) (0-5/hpf); Mean Corpuscular HGB CONC 33.9 g/dL (32.0-36.0); Mean Corpuscular Hemoglobin 33.4 pg (27.0-31.0); Mean Corpuscular Volume 98.5 fl (80.0-94.0); Mean Platelet Volume 7.9 fL (7.4-10.4); Metamyelocyte 2 % (0-0); Monocytes 5 % (0-10); Neutrophil 82 % (42-75); PLT Morphology Comment Appears Decreased; Platelet Count 73 thou/uL (130-400); RBC Distribution Width 11.9 % (11.5-14.5); Red Blood Cell (RBC) Count 3.21 mill/uL (4.70-6.10); White Blood Cell (WBC) Count 9.3 thou/uL (4.8-10.8)
[2017-04-23] MEDS: Sodium Chloride 0.9% 1,000 ML IV SCH (05:49)
[2017-04-23] MEDS: Hydrocortisone Sod Succ/PF 100 mg/2 ml Vial IVP SCH ×3 (05:55→17:39)
[2017-04-23 07:45] LABS: Actual Bicarbonate (HCO3a) 22.5 mEq/L (22-26); Base Excess (BEa) -0.5 mEq/L (0 (+/-) 2.5); CO2 Tension 31.4 mmHg (35.0-45.0); Calcium, Ionized 0.8 mmol/L (1.12-1.30); Hematocrit-ABG 33.7 % (42.0-52.0); Hemoglobin (Hb) 10.9 g/dL (14.0-18.0); O2 Tension (PaO2) 99.9 mmHg (80.0-100.0); pH, Arterial 7.47 (7.35-7.45)
[2017-04-23 07:46] LABS: Puncture Site RBA
--- NOTE | 2017-04-23 08:03 | PRG ---
DATE OF SERVICE: 04/23/2017 SUBJECTIVE: Mr. Payne is intubated on the ventilator. Review of systems not obtainable. PHYSICAL EXAMINATION: VITAL SIGNS: Blood pressure 108/49, pulse 77 and regular on the monitor, it is sinus. LUNGS: Clear. CARDIAC: Normal S1 and S2. ABDOMEN: Soft, nontender. EXTREMITIES: Mild to moderate edema. ASSESSMENT: 1. Rhabdomyolysis, 2. Respiratory failure. 3. ?seizure disorder. 4. Renal failure with creatinine of 4.7. PLAN: 1. He is receiving intravenous fluid. 2. He is on vasopressin. 3. We will continue to follow with you. 4. Non-ST elevation infarction with a troponin 19 peak. No changes at the present time.
[2017-04-23] MEDS ORDERED: Metoclopramide HCl 10 MG/2 ML VIAL IVP PRN (08:45)
[2017-04-23] MEDS: Heparin 5,000 UNITS/ML VIAL SC SCH (08:52)
[2017-04-23] MEDS: Famotidine/PF 20 mg/2ml Vial SLOW IVP SCH (08:52)
[2017-04-23] MEDS: Aspirin 325 MG TAB PO SCH (08:52)
--- NOTE | 2017-04-23 10:13 | PRG ---
DATE OF SERVICE: 04/23/2017 Forty minutes critical care time including time spent counseling with family. SUBJECTIVE: Mr. Payne remains intubated on mechanical ventilation. Neurologically, he will withdraw to pain, especially in the lower extremities. His eyes will flutter open. It is hard to tell if he is withdrawing to sternal rub or not. He has got some twitching around the right corner of his mouth . He also had some twitching in the left shoulder. He was started on Keppra yesterday and most of t he seizure activity has resolved. OBJECTIVE: VITAL SIGNS: On exam, his temperature is 98.3, pulse 78, blood pressure 119/65. A 24-hour intake 23 20, output 114 including 1 liter removed by dialysis. HEENT: Pupils sluggishly reactive. Sclerae with some conjunctival edema. Oropharynx clear. NECK: No JVD. LUNGS: Fairly clear anteriorly bilaterally. CARDIOVASCULAR: S1, S2 regular, without murmur. He is still on vasopressin. ABDOMEN: Soft, nontender. EXTREMITIES: Generalized edema throughout. LABORATORY DATA AND X-RAY FINDINGS: Sodium 136, potassium 4.2, chloride 97, CO2 of 27, BUN 41, creat inine 4.7, glucose 156. AST 285, ALT 123. CPK is down to 7052. CK-MB was 56.2, albumin 2.2. White blood cell count 9.3, hemoglobin 10, hematocrit 31.6, platelet count 73. PH 7.47, pCO2 of 32, pO2 o f 99 on SIMV rate 16, tidal volume 400, PEEP 5, pressure support 10, FiO2 50%. Chest x-ray shows con gestive changes bilaterally. ASSESSMENT: 1. Acute respiratory failure requiring mechanical ventilation. 2. Status post prolonged arrest. 3. Seizures. 4. Rhabdomyolysis. 5. Renal failure. PLAN: 1. He is continuing vasopressin. 2. Continuing supportive care with mechanical ventilation, antibiotics and fluids. The patient need s to start on tube feeds. We will probably need to hold his heparin for the time being, because of t hrombocytopenia that has developed. He will continue on aspirin. I will adjust his ventilator rate downward. I think, we can go ahead and stop the vancomycin since cultures are sterile.
[2017-04-23 11:00] LABS: CKMB 18.6 ng/mL (0-6.6)
[2017-04-23] MEDS: Vasopressin 40 UNIT, Admixture Fee 1 EACH in Sodium Chloride 0.9% 100 ML IV SCH (11:13)
--- NOTE | 2017-04-23 11:19 | RAD ---
PORTABLE CHEST 1 VIEW: Date: 04/23/17 Time: 0716 hours HISTORY: Respiratory failure. FINDINGS/IMPRESSION: Comparison made with exam from previous day. Endotracheal and nasogastric tubes are unchanged. Heart size is stable. Bilateral pleural effusions a re again noted. No pneumothoraces are seen. POS: [facility]
--- NOTE | 2017-04-23 12:07 | PRG ---
NEPHROLOGY PROGRESS NOTE DATE OF SERVICE: 04/23/2017 SUBJECTIVE: Patient was seen and examined at ICU. He remains intubated. Earlier anuric. No family at the bedside. The patient seems to be doing better. He is probably on vasopressin. Blood pressu re is stable. OBJECTIVE: GENERAL: This is a well-built male seen in the ICU, intubated. VITAL SIGNS: Temperature 90, pulse 77, respiratory rate 18 and blood pressure 139/54. HEENT: Atraumatic, normocephalic. Oral mucosa is moist. NECK: Supple. CARDIOVASCULAR: S1, S2 heard. Rate and rhythm regular. RESPIRATORY: Clear to auscultation. GASTROINTESTINAL: Abdomen is soft. MUSCULOSKELETAL: No tenderness. No edema. DERMATOLOGIC: No skin rash. NEUROLOGIC: Alert and awake and oriented x3. No focal neurologic deficits. Moving all the extremit ies. PSYCHIATRIC: Mood and affect normal. LABORATORY DATA: Potassium is 4.2, BUN is 41 and creatinine is 4.7. Hemoglobin is 10.7. ASSESSMENT AND PLAN: 1. Acute kidney injury on chronic kidney disease. Renal function is worsening. We will have dialys is today, short run for 2 hours as tolerated. 2. Hyponatremia, limit fluid intake. 3. Hyperkalemia, better. 4. Acidosis, stable. 5. Anemia. 6. Acute hypoxic respiratory failure, intubated. Plan is to have dialysis today and continue close monitoring.
[2017-04-23] MEDS: Lorazepam 2 MG/ML VIAL SLOW IVP PRN (12:26)
[2017-04-23] MEDS ORDERED: Lorazepam 2 MG/ML VIAL SLOW IVP PRN (12:33)
--- NOTE | 2017-04-23 14:22 | PDOC.PN ---
- Subjective Encounter Start Date: 04/23/17 Encounter Start Time: 14:20 Subjective: remains intubated and largley unresponsive -: not on any sedation - Objective Resuscitation Status: Resuscitation Status DNR:Do Not Resuscitate MAR Reviewed: Yes Vital Signs & Weight: Vital Signs (12 hours) Temp Pulse Resp BP Pulse Ox 04/23/17 12:49 71 110/53 L 04/23/17 12:00 98.7 F 13 04/23/17 10:00 20 04/23/17 08:00 99.0 F 78 16 99 04/23/17 07:17 75 117/41 L 04/23/17 06:00 16 04/23/17 04:00 98.3 F 16 04/23/17 02:23 79 Weight Admit Weight 177 lb 11.081 oz Weight 213 lb 2.992 oz Most Recent Monitor Data Heart Rate from ECG 75 NIBP 110/53 NIBP BP-Mean 77 Respiration from ECG 20 SpO2 100 I&O: 04/22/17 04/23/17 04/24/17 06:59 06:59 06:59 Intake Total 4860.9 2320.7 250 Output Total 275 114 2 Balance 4585.9 2206.7 248 Result Diagrams: 04/23/17 04:27 04/23/17 04:27 Additional Labs: Accuchecks 04/23/17 04/23/17 04/22/17 10:18 03:54 22:34 POC Glucose 131 H 146 H 145 H 04/22/17 04/22/17 16:16 11:18 POC Glucose 152 H 158 H Microbiology 04/19/17 20:00 Urine Straight Catheter Urine Culture - Final NO GROWTH AT 36 HOURS 04/19/17 19:54 Nasal swab Influenza Types A,B Direct EIA - Final 04/19/17 20:35 Venous blood - Left Arm Blood Culture - Preliminary NO GROWTH AT 48 HOURS 04/19/17 20:30 Venous blood - Right Arm Blood Culture - Preliminary NO GROWTH AT 48 HOURS Laboratory Tests 04/19/17 04/19/17 04/19/17 20:31 20:31 23:43 Magnesium Total Bilirubin 1.2 AST 53 H ALT 21 Creatine Kinase 1411 H CK-MB (CK-2) 31.0 H* 64.2 H* 04/20/17 04/20/17 04/20/17 04:51 05:17 08:37 Magnesium 1.7 Total Bilirubin 1.1 AST 96 H ALT 26 Creatine Kinase 2684 H CK-MB (CK-2) 104.3 H* 120.1 H* 04/20/17 04/20/17 04/21/17 08:37 15:37 04:45 Magnesium Total Bilirubin 1.0 AST 160 H ALT 35 Creatine Kinase 2957 H CK-MB (CK-2) 104.2 H* 04/21/17 04/22/17 04/22/17 04:45 04:41 07:56 Magnesium Total Bilirubin 1.3 H AST 320 H ALT 82 H Creatine Kinase 4635 H 73895 H CK-MB (CK-2) 56.2 H* 04/23/17 04:27 Magnesium 1.4 L Total Bilirubin 1.5 H AST 285 H ALT 123 H Creatine Kinase 7052 H CK-MB (CK-2) Laboratory Tests 04/19/17 04/19/17 04/20/17 20:31 23:43 05:17 CK-MB (CK-2) 31.0 H* 64.2 H* 104.3 H* 04/20/17 04/20/17 04/22/17 08:37 15:37 07:56 CK-MB (CK-2) 120.1 H* 104.2 H* 56.2 H* 04/23/17 10:22 CK-MB (CK-2) 18.6 H* Phys Exam - Physical Examination Constitutional: NAD fluttering of eyes.less seizure activity this am HEENT: PERRLA, moist MMs, sclera anicteric ETT Neck: no JVD Respiratory: no wheezing, no rales, no rhonchi Cardiovascular: RRR, no significant murmur Gastrointestinal: soft, no distention, positive bowel sounds Musculoskeletal: no edema, pulses present Deviation from normal: encephalopathic.hurtado snot responds to commands,verbal stimuli Dx/Plan (1) Seizures Code(s): R56.9 - UNSPECIFIED CONVULSIONS Status: Acute (2) Acute respiratory failure Code(s): J96.00 - ACUTE RESPIRATORY FAILURE, UNSP W HYPOXIA OR HYPERCAPNIA Status: Acute Qualifiers: Respiratory failure complication: hypoxia Qualified Code(s): J96.01 - Acute respiratory failure with hypoxia (3) Cardiac arrest Code(s): I46.9 - CARDIAC ARREST, CAUSE UNSPECIFIED Status: Acute Comment: Coded 04/19/17 (4) ACS (acute coronary syndrome) Code(s): I24.9 - ACUTE ISCHEMIC HEART DISEASE, UNSPECIFIED Status: Acute (5) Rhabdomyolysis Code(s): M62.82 - RHABDOMYOLYSIS Status: Acute (6) Metabolic encephalopathy Code(s): G93.41 - METABOLIC ENCEPHALOPATHY Status: Acute (7) MICH (acute kidney injury) Code(s): N17.9 - ACUTE KIDNEY FAILURE, UNSPECIFIED Status: Acute (8) Metabolic acidosis Code(s): E87.2 - ACIDOSIS Status: Acute (9) Shock Code(s): R57.9 - SHOCK, UNSPECIFIED Status: Acute Comment: Cardiogenic Vs Septic Vs both (10) Sepsis Code(s): A41.9 - SEPSIS, UNSPECIFIED ORGANISM Status: Suspected - Plan calles catheter, continue antibiotics, socially responsible investment adviser, respiratory therapy, incentive spirometry, DVT proph w/SCDs Cont HD per nephrology.minimal urine output -: ? Cerebral hemorrhage Vs Ischemic stroke as a reason of seizures -: too unstable to take down for MRI.conservative Rx.Off of heparin -: cont empiric ABx, all Cx negative so far. -: cont Keppra IV.off of Phenylephrine d/t tachycardia.HR better now,BP stable * .Vent per PCCM. * appreciate input from all specialities. * daily labs * PCT following w family.Pt DNR. * Guarded prognosis Review of Systems - Review of Systems Other: unobtainable as pt is encephalopathic from critical illness - Medications/Allergies Allergies/Adverse Reactions: Allergies Allergy/AdvReac Type Severity Reaction Status Date / Time No Known Drug Allergies Allergy Unverified 04/19/17 20:09 Medications: Current Medications Aspirin (Aspirin) 325 mg PO DAILY [facility] Last Admin: 04/23/17 08:52 Dose: 325 mg Dextrose/Water (Dextrose 50%) 25 gm SLOW IVP PRN PRN PRN Reason: Hypoglycemia Famotidine (Pepcid) 20 mg SLOW IVP 0900 [facility] Last Admin: 04/23/17 08:52 Dose: 20 mg Glucagon (Glucagon) 1 mg IM PRN PRN PRN Reason: Hypoglycemia Hydrocortisone Sodium Succinate (Solu-Cortef) 100 mg IVP Q6HR [facility] Last Admin: 04/23/17 11:17 Dose: 100 mg Dextrose/Water (D5w) 1,000 mls @ 0 mls/hr IV .Q0M PRN; As Directed PRN Reason: Hypoglycemia Fentanyl Citrate 2,000 mcg/ (Sodium Chloride) 100 mls @ 0 mls/hr IV INF DON; Per Protocol PRN Reason: Protocol Stop: 05/20/17 08:28 Last Admin: 04/21/17 00:37 Dose: 100 mls Fentanyl Citrate (Fentanyl Bolus) 250 mls @ 0 mls/hr IVPB PRN PRN; As Directed PRN Reason: Breakthrough pain Stop: 05/20/17 08:28 Piperacillin Sod/Tazobactam (Sod 2.25 gm/ Sodium Chloride) 100 mls @ 200 mls/ hr IVPB 0100,0900,1700 DON Last Admin: 04/23/17 08:52 Dose: 100 mls Vasopressin 40 unit/Miscellaneous Medication 1 each/ Sodium Chloride 102 mls @ 0 mls/hr IV INF DON; As Directed PRN Reason: Protocol Last Admin: 04/23/17 11:13 Dose: 102 mls Phenylephrine HCl 20 mg/ (Sodium Chloride) 252 mls @ 0 mls/hr IV INF DON; Titrate PRN Reason: Protocol Last Admin: 04/22/17 02:37 Dose: 252 mls Sodium Chloride (Normal Saline 0.9%) 1,000 mls @ 50 mls/hr IV .Q20H DON Last Admin: 04/23/17 05:49 Dose: 1,000 mls Levetiracetam 500 mg/ Device 100 mls @ 200 mls/hr IVPB 1000,2200 DON Last Admin: 04/23/17 10:39 Dose: 100 mls Insulin Human Lispro (Humalog) 0 units SC .MILD SLIDING SCALE PRN PRN Reason: Mild Correctional Scale Last Admin: 04/22/17 16:24 Dose: 2 unit Lorazepam (Ativan) 2 mg SLOW IVP Q2H PRN PRN Reason: Anxiety to achieve Mera 2-3 Stop: 05/20/17 08:28 Last Admin: 04/23/17 12:26 Dose: 2 mg Lorazepam (Ativan) 2 mg SLOW IVP Q2H PRN PRN Reason: Seizures Metoclopramide HCl (Reglan) 10 mg IVP Q6H PRN PRN Reason: Nausea/Vomiting Morphine Sulfate (Morphine) 2 mg SLOW IVP Q2H PRN PRN Reason: Breakthrough pain Stop: 05/20/17 08:28 Ondansetron HCl (Zofran) 4 mg IVP Q6H PRN PRN Reason: Nausea/Vomiting Propofol (Diprivan) 1,000 mg IV INF PRN; Protocol PRN Reason: TO ACHIEVE MERA SCORE 2-3 Stop: 05/20/17 08:28 Sodium Chloride (Flush - Normal Saline) 10 ml IVF Q12HR DON Last Admin: 04/23/17 08:53 Dose: 10 ml Sodium Chloride (Flush - Normal Saline) 10 ml IVF PRN PRN PRN Reason: Saline Flush
[2017-04-23] MEDS ORDERED: Sterile Water 10 ML VIAL IVP SCH (15:34)
[2017-04-23] MEDS ORDERED: Activase 2 MG VIAL CATH SCH (15:34)
--- NOTE | 2017-04-23 19:35 | EKG ---
Test Reason : Blood Pressure : / mmHG Vent. Rate : 135 BPM Atrial Rate : 135 BPM P-R Int : 192 ms QRS Dur : 096 ms QT Int : 316 ms P-R-T Axes : -04 091 117 degrees QTc Int : 474 ms Sinus tachycardia Rightward axis Marked ST abnormality, possible anterolateral subendocardial injury Abnormal ECG Confirmed by DAY ACEVEDO, JULIO Colvin ([id number]), metropolitan editor ADALI COOPER ([id number]) on 04/23/2017 7:35:12 PM Referred By: DAY Confirmed By:JULIO BERNSTEIN MD
[2017-04-23] MEDS: HumaLOG 300 UNITS/3 ML VIAL SC PRN (19:53)
[2017-04-23] MEDS ORDERED: Diltiazem HCl 125 MG, Admixture Fee 1 EACH in Sodium Chloride 0.9% 100 ML IVPB SCH (21:45)
[2017-04-24] MEDS: Piperacillin/Tazobactam 2.25 GM in Sodium Chloride 0.9% 100 ML IVPB SCH (00:18)
[2017-04-24] MEDS: Hydrocortisone Sod Succ/PF 100 mg/2 ml Vial IVP SCH ×2 (00:18→05:36)
[2017-04-24] MEDS: Vasopressin 40 UNIT, Admixture Fee 1 EACH in Sodium Chloride 0.9% 100 ML IV SCH (03:36)
[2017-04-24] MEDS: HumaLOG 300 UNITS/3 ML VIAL SC PRN (03:46)
[2017-04-24 04:20] LABS: #Lymphocytes 0.6 thou/uL (1.20-3.40); #Monocytes 0.8 thou/uL (0.11-0.59); #Neutrophils 8.1 thou/uL (1.40-6.50); %Basophils 0.1 % (0.0-1.0); %Eosinophils 0.1 % (0.0-10.0); %Lymphocytes 6.1 % (21.0-51.0); %Monocytes 7.9 % (0.0-10.0); %Neutrophils 85.8 % (42.0-75.0); Hemoglobin 10.2 g/dL (14.0-18.0); Mean Corpuscular HGB CONC 34.1 g/dL (32.0-36.0); Mean Corpuscular Volume 99.8 fl (80.0-94.0); Mean Platelet Volume 8.8 fL (7.4-10.4); Platelet Count 62 thou/uL (130-400); RBC Distribution Width 12.1 % (11.5-14.5); Red Blood Cell (RBC) Count 2.99 mill/uL (4.70-6.10); White Blood Cell (WBC) Count 9.4 thou/uL (4.8-10.8)
[2017-04-24 04:44] LABS: ALT (SGPT) 145 U/L (8-55); AST (SGOT) 217 U/L (5-34); Albumin 2.3 g/dL (3.4-4.8); Alkaline Phosphatase 53 U/L (40-150); Anion Gap 14 mmol/L (10-20); BUN (Urea Nitrogen) 65 mg/dL (8.4-25.7); Bilirubin, Total 1.2 mg/dL (0.2-1.2); Calc. Creatinine Clearance 13 mL/min (70-130); Calcium 6.4 mg/dL (7.8-10.44); Carbon Dioxide 28 mmol/L (23-31); Chloride 98 mmol/L (98-107); Estimated GFR-MDRD 10; Globulin 2.2 g/dL (2.4-3.5); Glucose 196 mg/dL (83-110); Potassium 4.4 mmol/L (3.5-5.1); Protein, Total 4.5 g/dL (5.8-8.1); Sodium 136 mmol/L (136-145)
[2017-04-24 04:58] LABS: CK (CPK) 4889 U/L (30-200)
[2017-04-24] MEDS: Sodium Chloride 0.9% 1,000 ML IV SCH (05:41)
[2017-04-24 07:05] LABS: Actual Bicarbonate (HCO3a) 21.9 mEq/L (22-26); CO2 Tension 30.4 mmHg (35.0-45.0); Hematocrit-ABG 32.7 % (42.0-52.0); O2 Tension (PaO2) 63.2 mmHg (80.0-100.0); pH, Arterial 7.48 (7.35-7.45)
[2017-04-24 07:15] LABS: Calcium, Ionized 0.9 mmol/L (1.12-1.30); Puncture Site RBA
[2017-04-24] MEDS: Famotidine/PF 20 mg/2ml Vial SLOW IVP SCH (08:42)
[2017-04-24] MEDS: Aspirin 325 MG TAB PO SCH (08:42)
--- NOTE | 2017-04-24 08:54 | RAD ---
PORTABLE SEMIUPRIGHT FRONTAL CHEST RADIOGRAPH: Date: 04/24/17 COMPARISON: 04/23/17. HISTORY: Ventilated CCU patient. FINDINGS: Endotracheal tube and nasogastric tube in stable position. No pneumothorax is seen. Dense opacity noted in the medial left lung base with blunting of the costophrenic angle suggesting l eft pleural fluid. Increased density is again seen in the right hilar region with prominence of the m inor fissure and blunting of the right costophrenic angle suggesting pleural fluid. Atherosclerotic c alcification in the aortic arch noted. No pneumothorax evident. IMPRESSION: Increased density in the right perihilar region and both lung bases suggests bilateral pleural effusi ons. Probable left lower lobe consolidation/collapse. Continued follow-up for resolution advised. POS: [facility]
--- NOTE | 2017-04-24 11:18 | PRG ---
DATE OF SERVICE: 04/24/2017 Thirty-five minutes critical care time. SUBJECTIVE: The patient's daughter is at the bedside and we discussed the situation in detail today. PHYSICAL EXAMINATION: VITAL SIGNS: Temperature is 97.9, pulse is 80, blood pressure 110/62, and O2 sat 99%. NEUROLOGIC: Neurologically, his eyes will open, but he has no extraocular movements. He has some cl onic movements in his lower extremities with bilateral upgoing toes. He has no movement in his hands . HEENT: Otherwise, unremarkable. NECK: No JVD. LUNGS: Coarse breath sounds. CARDIOVASCULAR: S1, S2 regular. ABDOMEN: Soft. EXTREMITIES: Edematous throughout. LABORATORY DATA: Sodium 136, potassium 4.4, chloride 98, CO2 is 28, BUN 65, creatinine 5.5, glucose 196. CPK is 4889. ABG: pH of 7.48, PCO2 of 30, PO2 of 63. IMAGING: Chest x-ray shows diffuse bilateral infiltrates concentrated on the right. 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 PLAN: I spoke with the daughter. She stated that he would not want to be like this. She is agreeab le to extubate and proceed with comfort care. My guess is that the patient will succumb within a day or two.
--- NOTE | 2017-04-24 12:55 | PDOC.PN ---
- Subjective Encounter Start Date: 04/24/17 Encounter Start Time: 12:53 Subjective: remains intubated and off of sedation -: family wants comfort care as he remians encephalopathic - Objective Resuscitation Status: Resuscitation Status DNR:Do Not Resuscitate MAR Reviewed: Yes Vital Signs & Weight: Vital Signs (12 hours) Temp Pulse Resp BP Pulse Ox 04/24/17 12:00 98.1 F 22 H 04/24/17 11:03 85 109/57 L 04/24/17 10:00 22 H 04/24/17 08:00 97.9 F 70 24 H 99 04/24/17 06:14 70 111/64 04/24/17 06:00 20 04/24/17 03:50 97.9 F 04/24/17 03:33 69 22 H 04/24/17 02:00 25 H Weight Admit Weight 177 lb 11.081 oz Weight 208 lb 15.971 oz Most Recent Monitor Data Heart Rate from ECG 82 NIBP 120/68 NIBP BP-Mean 81 Respiration from ECG 23 SpO2 97 I&O: 04/23/17 04/24/17 04/25/17 06:59 06:59 06:59 Intake Total 2320.7 3126.6 175 Output Total 114 10 0 Balance 2206.7 3116.6 175 Result Diagrams: 04/24/17 03:42 04/24/17 03:42 Additional Labs: Accuchecks 04/24/17 04/23/17 03:44 19:52 POC Glucose 183 H 191 H Microbiology 04/19/17 20:00 Urine Straight Catheter Urine Culture - Final NO GROWTH AT 36 HOURS 04/19/17 19:54 Nasal swab Influenza Types A,B Direct EIA - Final 04/19/17 20:35 Venous blood - Left Arm Blood Culture - Preliminary NO GROWTH AT 48 HOURS 04/19/17 20:30 Venous blood - Right Arm Blood Culture - Preliminary NO GROWTH AT 48 HOURS Laboratory Tests 04/19/17 04/19/17 04/19/17 20:31 20:31 23:43 Creatinine 2.94 H AST 53 H ALT Creatine Kinase 1411 H CK-MB (CK-2) 31.0 H* 64.2 H* Hep Bs Antigen Hep Bs Antibody Hep Bs Antibody Index Hep B Core Total Ab Hepatitis C Antibody 04/20/17 04/20/17 04/20/17 04:51 05:17 08:37 Creatinine 2.71 H AST 96 H ALT 26 Creatine Kinase 2684 H CK-MB (CK-2) 104.3 H* 120.1 H* Hep Bs Antigen Hep Bs Antibody Hep Bs Antibody Index Hep B Core Total Ab Hepatitis C Antibody 04/20/17 04/20/17 04/21/17 08:37 15:37 04:45 Creatinine 3.65 H AST 160 H ALT 35 Creatine Kinase 2957 H CK-MB (CK-2) 104.2 H* Hep Bs Antigen Hep Bs Antibody Hep Bs Antibody Index Hep B Core Total Ab Hepatitis C Antibody 04/21/17 04/21/17 04/22/17 04:45 10:03 04:41 Creatinine 3.61 H AST 320 H ALT 82 H Creatine Kinase 4635 H 54124 H CK-MB (CK-2) Hep Bs Antigen Non-Reactive Hep Bs Antibody Non-Reactive Hep Bs Antibody Index 0.00 Hep B Core Total Ab Non-Reactive Hepatitis C Antibody Non-Reactive 04/22/17 04/23/17 04/23/17 07:56 04:27 10:22 Creatinine 4.72 H AST 285 H ALT 123 H Creatine Kinase 7052 H CK-MB (CK-2) 56.2 H* 18.6 H* Hep Bs Antigen Hep Bs Antibody Hep Bs Antibody Index Hep B Core Total Ab Hepatitis C Antibody 04/24/17 04/24/17 03:42 03:42 Creatinine 5.54 H AST 217 H ALT 145 H Creatine Kinase 4889 H CK-MB (CK-2) 14.0 H* Hep Bs Antigen Hep Bs Antibody Hep Bs Antibody Index Hep B Core Total Ab Hepatitis C Antibody Phys Exam - Physical Examination Constitutional: NAD unresponsive HEENT: PERRLA, moist MMs, sclera anicteric ETT Neck: no JVD Respiratory: no wheezing, no rales, no rhonchi Cardiovascular: RRR, no significant murmur Gastrointestinal: soft, no distention, positive bowel sounds upgoing babinski.focal seizure involving mouth & face Dx/Plan (1) Seizures Code(s): R56.9 - UNSPECIFIED CONVULSIONS Status: Acute (2) Acute respiratory failure Code(s): J96.00 - ACUTE RESPIRATORY FAILURE, UNSP W HYPOXIA OR HYPERCAPNIA Status: Acute Qualifiers: Respiratory failure complication: hypoxia Qualified Code(s): J96.01 - Acute respiratory failure with hypoxia (3) Cardiac arrest Code(s): I46.9 - CARDIAC ARREST, CAUSE UNSPECIFIED Status: Acute Comment: Coded 04/19/17 (4) ACS (acute coronary syndrome) Code(s): I24.9 - ACUTE ISCHEMIC HEART DISEASE, UNSPECIFIED Status: Acute (5) Rhabdomyolysis Code(s): M62.82 - RHABDOMYOLYSIS Status: Acute (6) Metabolic encephalopathy Code(s): G93.41 - METABOLIC ENCEPHALOPATHY Status: Acute (7) MICH (acute kidney injury) Code(s): N17.9 - ACUTE KIDNEY FAILURE, UNSPECIFIED Status: Acute (8) Metabolic acidosis Code(s): E87.2 - ACIDOSIS Status: Acute (9) Shock Code(s): R57.9 - SHOCK, UNSPECIFIED Status: Acute Comment: Cardiogenic Vs Septic Vs both (10) Sepsis Code(s): A41.9 - SEPSIS, UNSPECIFIED ORGANISM Status: Suspected - Plan DVT proph w/SCDs Family has decided for making him comfort care.To be extubated terminally -: Prn Ativan,Morphine. -: Dc daily labs etc * . Review of Systems - Review of Systems Other: unobtainable due to encephalopathy - Medications/Allergies Allergies/Adverse Reactions: Allergies Allergy/AdvReac Type Severity Reaction Status Date / Time No Known Drug Allergies Allergy Unverified 04/19/17 20:09 Medications: Current Medications Dextrose/Water (Dextrose 50%) 25 gm SLOW IVP PRN PRN PRN Reason: Hypoglycemia Dextrose/Water (D5w) 1,000 mls @ 0 mls/hr IV .Q0M PRN; As Directed PRN Reason: Hypoglycemia Lorazepam (Ativan) 2 mg SLOW IVP Q2H PRN PRN Reason: Anxiety to achieve [place]oval 2-3 Stop: 05/20/17 08:28 Last Admin: 04/23/17 12:26 Dose: 2 mg Lorazepam (Ativan) 2 mg SLOW IVP Q2H PRN PRN Reason: Seizures Morphine Sulfate (Morphine) 2 mg SLOW IVP Q2H PRN PRN Reason: Breakthrough pain Stop: 05/20/17 08:28 Morphine Sulfate (Morphine) 4 mg SLOW IVP Q15MIN PRN PRN Reason: Dyspnea Sodium Chloride (Flush - Normal Saline) 10 ml IVF Q12HR DON Last Admin: 04/24/17 10:21 Dose: 10 ml Sodium Chloride (Flush - Normal Saline) 10 ml IVF PRN PRN PRN Reason: Saline Flush
[2017-04-24] MEDS: Lorazepam 2 MG/ML VIAL SLOW IVP PRN (17:59)
--- NOTE | 2017-04-24 18:12 | PRG ---
DATE OF SERVICE: 04/24/2017 SUBJECTIVE: The patient was seen and examined in the ICU, remains nonverbal, intubated. Family is d eciding for comfort measures. The patient is having seizures. OBJECTIVE: GENERAL: This is an elderly male, seen in ICU, intubated. VITAL SIGNS: Temperature 97.9, pulse 89, respiratory rate 20, blood pressure 135/72. HEENT: Intubated. CARDIOVASCULAR: S1, S2 heard. Rate and rhythm regular. RESPIRATORY: Clear. GASTROINTESTINAL: Abdomen is soft. MUSCULOSKELETAL: 1+ edema. DERMATOLOGIC: No skin rash. NEUROLOGIC: Intubated and not responding. LABORATORY DATA: Potassium is 4.4, BUN is 65, creatinine is 5.5. ASSESSMENT AND PLAN: 1. Acute kidney injury on chronic kidney disease, stable. No dialysis today. Family is deciding fo r comfort measures. 2. Hyponatremia, stable. 3. Hyperkalemia, better. 4. Acidosis. 5. Anemia. 6. Acute hypoxic respiratory failure. Overall prognosis is poor. Family decided to have comfort measures and we will sign off.
[2017-04-25 00:59] VITALS: BP 147/81; TEMP 97.6
--- NOTE | 2017-04-25 07:06 | PRG ---
DATE OF SERVICE: 04/25/2017 SUBJECTIVE: The patient looks comfortable in bed. His daughter is in the room asleep near him. PHYSICAL EXAMINATION: VITAL SIGNS: Temperature 97.6, pulse 80, respiration 22, O2 sat 100%. HEENT: Unremarkable. NECK: No JVD. LUNGS: Clear, but distant breath sounds. CARDIAC: S1 and S2 regular. ABDOMEN: Soft. EXTREMITIES: No edema. ASSESSMENT: 1. Status post cardiac arrest. 2. Acute respiratory failure. 3. Acute renal failure. PLAN: Palliative care. Expect that he will pass away soon. Family is comfortable with the plan.
--- NOTE | 2017-04-25 12:02 | PDOC.PN ---
- Subjective Encounter Start Date: 04/25/17 Encounter Start Time: 12:00 -: non-verbal - Objective Resuscitation Status: Resuscitation Status DNR:Do Not Resuscitate MAR Reviewed: Yes Vital Signs & Weight: Vital Signs (12 hours) Temp Pulse Resp Pulse Ox 04/25/17 08:00 97.6 F 80 22 H 100 Weight Admit Weight 177 lb 11.081 oz Weight 225 lb 6 oz Most Recent Monitor Data Heart Rate from ECG 77 NIBP 120/66 NIBP BP-Mean 78 Respiration from ECG 19 SpO2 99 I&O: 04/24/17 04/25/17 04/26/17 06:59 06:59 06:59 Intake Total 3126.6 574.1 Output Total 10 10 Balance 3116.6 564.1 Result Diagrams: 04/24/17 03:42 04/24/17 03:42 Phys Exam - Physical Examination Constitutional: NAD Neck: no JVD rattles rhonchi Cardiovascular: RRR, no significant murmur Gastrointestinal: soft, non-tender Musculoskeletal: edema present Dx/Plan (1) ACS (acute coronary syndrome) Code(s): I24.9 - ACUTE ISCHEMIC HEART DISEASE, UNSPECIFIED Status: Acute (2) MICH (acute kidney injury) Code(s): N17.9 - ACUTE KIDNEY FAILURE, UNSPECIFIED Status: Acute (3) Acute respiratory failure Code(s): J96.00 - ACUTE RESPIRATORY FAILURE, UNSP W HYPOXIA OR HYPERCAPNIA Status: Acute Qualifiers: Respiratory failure complication: hypoxia Qualified Code(s): J96.01 - Acute respiratory failure with hypoxia (4) Cardiac arrest Code(s): I46.9 - CARDIAC ARREST, CAUSE UNSPECIFIED Status: Acute Comment: Coded 04/19/17 (5) Metabolic acidosis Code(s): E87.2 - ACIDOSIS Status: Acute (6) Metabolic encephalopathy Code(s): G93.41 - METABOLIC ENCEPHALOPATHY Status: Acute (7) Rhabdomyolysis Code(s): M62.82 - RHABDOMYOLYSIS Status: Acute (8) Seizures Code(s): R56.9 - UNSPECIFIED CONVULSIONS Status: Acute - Plan prognosi grim, discussed with family -: palliative care, early demise anticipated * .
[2017-04-25 14:47] VITALS: BMI 34.1
--- NOTE | 2017-04-27 22:51 | OP-2 ---
DATE OF PROCEDURE: 04/20/2017 FEMORAL CENTRAL LINE PROCEDURE NOTE INDICATION: Potential need for pressors and multiple IV infusions one time. PROCEDURE CLAIM PROFESSIONAL: Carla Caceres DO ATTENDING PHYSICIAN: Emergency room physician, Dr. Savanna Angel was in attendance during the procedure. Ultrasound was used initially to identify location of the femoral vein. CONSENT: As this was an emergent procedure, consent was implied. PROCEDURE SUMMARY: A timeout was performed. The hands were washed immediately prior to the procedure. I wore surgical cap, mask with protective eyewear, sterile gown and sterile gloves throughout the procedure. The left inguinal region was prepped using chlorhexidine scrub and draped in sterile fashion using 3/4 sheet drape and the femoral pulse was identified. Palpating the femoral pulse throughout the procedure, the introducer needle was inserted medial to the femoral artery, inferior to the inguinal crease and into the femoral vein. Venous blood was withdrawn. The syringe was removed and guidewire was advanced into the introducer needle. A small incision was made at the skin surface with the scalpel and the introducer needle was exchanged for a dilator over the guidewire. After appropriate dilation was obtained, the dilator was exchanged over the wire for a 7-[place]izen [place] central venous catheter. The wire was removed and the catheter was sutured in place. A sterile Tegaderm was placed over the catheter at the insertion site. The patient tolerated the procedure without any hemodynamic compromise. At the time of procedure completion, all ports were aspirated and flushed properly. ESTIMATED BLOOD LOSS: Less than 10 mL. MTDD
--- NOTE | 2017-04-28 09:15 | PQF ---
PANCHO CLAROS RICHA MD [id number] CLINICAL DOCUMENTATION CLARIFICATION FORM: POST DISCHARGE Addendum to original discharge summary date: ____ Late entry note date: __ DATE: 04/28/2017 ATTN: DR. LOUISE Please exercise your independent, professional judgment in responding to the clarification form. Clinical indicators are provided on the bottom of this form for your review Please check appropriate box(s): [ ] Hypovolemic Shock [ X] Cardiogenic Shock [ X ] Septic Shock [ ] Hemorrhagic Shock due to trauma: [ ] Hemorrhagic Shock due to surgery: [ ] Anaphylactic Shock (please specify etiology) [ ] Neurogenic Shock [ ] Rljih-Mugz-eegsmtx Shock (please specify etiology) [ ] Shock Unspecified [ ] Other diagnosis [ ] Unable to determine In addition, please specify: Present on Admission (POA): [ X ] Yes [ ] No [ ] Unable to determine For continuity of documentation, please document condition throughout progress notes and discharge summary. Thank You. CLINICAL INDICATORS - SIGNS / SYMPTOMS / LABS: VITALS: TEMP 103.4 DOWN TO 101.7, PULSE 149, BP 124/86, RR 28, O2 SAT 96% ON 2L H&P: AMS, Obtunded SEVERE SEPSIS - "I DO NOT THINK THE PATIENT HAS SEPTIC SHOCK" 04/20-04/23 PN: SHOCK - CARDIOGENIC VS SEPTIC VS BOTH RISK FACTORS: Sepsis ACUTE KIDNEY FAILURE RHABDOMYOLYSIS METABOLIC ENCEPHALOPATHY TREATMENTS: CCU Inotropes / vasopressors Hemodynamic monitoring Maximizing oxygenation Massive fluid resuscitation IV Antibiotics (This form is maintained as a part of the permanent medical record) 2014 [employer]. All Rights Reserved Mounika Stokes CCS, [employer] PERSON-H [email or web address] [phone] [email or web address]
== END 2017-04-25 21:12 | disposition hospice, inpatient (51) | DRG 870 ==
LOC: EDBD 19:40 → ERS 19:40 → EDBD 20:50 → CCU 20:50 → T4-A 04-24 22:34
PROVIDERS: ADMIT Family Medicine; ATTEND Family Medicine
PROC: 0BH17EZ Insertion of Endotracheal Airway into Trachea, Via Natural or Artificial Opening (ICD-10-PCS; principal; 2017-04-20)
PROC: 5A1955Z Respiratory Ventilation, Greater than 96 Consecutive Hours (ICD-10-PCS; 2017-04-20)
PROC: 02HV33Z Insertion of Infusion Device into Superior Vena Cava, Percutaneous Approach (ICD-10-PCS; 2017-04-21)
PROC: 5A1D70Z Performance of Urinary Filtration, Intermittent, Less than 6 Hours Per Day (ICD-10-PCS; 2017-04-21)
DX: A41.9 Sepsis, unspecified organism (principal); J96.01 Acute respiratory failure with hypoxia; R65.21 Severe sepsis with septic shock; R57.0 Cardiogenic shock; G93.41 Metabolic encephalopathy; G93.1 Anoxic brain damage, not elsewhere classified; N17.9 Acute kidney failure, unspecified; R13.10 Dysphagia, unspecified; I46.9 Cardiac arrest, cause unspecified; E87.1 Hypo-osmolality and hyponatremia; E87.2 Acidosis; M62.82 Rhabdomyolysis; M86.8X7 Other osteomyelitis, ankle and foot; I24.9 Acute ischemic heart disease, unspecified; R56.9 Unspecified convulsions; D75.82 Heparin induced thrombocytopenia (HIT); E11.69 Type 2 diabetes mellitus with other specified complication; E11.22 Type 2 diabetes mellitus with diabetic chronic kidney disease; I10 Essential (primary) hypertension; Z51.5 Encounter for palliative care; E87.5 Hyperkalemia; D64.9 Anemia, unspecified; T45.515A Adverse effect of anticoagulants, initial encounter; E86.0 Dehydration; I73.9 Peripheral vascular disease, unspecified; Z95.1 Presence of aortocoronary bypass graft; J44.9 Chronic obstructive pulmonary disease, unspecified; I12.9 Hypertensive chronic kidney disease with stage 1 through stage 4 chronic kidney disease, or unspecified chronic kidney disease; N18.2 Chronic kidney disease, stage 2 (mild); Z87.891 Personal history of nicotine dependence; K70.30 Alcoholic cirrhosis of liver without ascites
CPT/HCPCS: 36415; 36416; 51702; 70450; 71045; 80053; 80202; 81003; 81015; 82550; 82553; 82805; 83036; 83605; 83690; 83735; 83880; 84100; 84484; 85025; 85610; 85730; 86704; 86706; 86803; 87040; 87086; 87340; 90935; 93005; 93010; 93306; 93970; 94002; 94003; 94640; 95816; 95819; 96361; 96365; 96367; 99292; A4216; A4217; C1752; G0257; G0365; G8978-GP-CN; G8979-GP-CL; G8987-GO-CN; G8988-GO-CN; G8989-GO-CN; J0131; J0461; J1644; J1720; J1953; J2060; J2250; J2270; J2370; J2543; J2704; J2997; J3010; J3370; J7050; J7620; S0028